=== PATIENT | male | born 1955 | race Caucasian/White ===

== ENCOUNTER 2017-05-31 17:26 | Inpatient (IN) ==
[2017-05-31 17:56] LABS: Immature Granulocytes % 0.5 % (0-4); Red Cell Distribution Width 18.8 % (11.5-14.5)
[2017-05-31 17:57] LABS: Basophils % 0.1 %; Lymphocytes # 0.5 K/mcL (0.6-4.6); Lymphocytes % 4.9 %; Mean Corpuscular HGB Conc 28.8 g/dL (31.6-35.5); Mean Corpuscular Hemoglobin 21.6 pg (28.0-33.3); Mean Corpuscular Volume 74.9 fL (83.0-100.0); Mean Platelet Volume 9.9 fL (9.4-12.4); Monocytes # 0.3 K/mcL (0.0-1.3); Monocytes % 3.3 %; Neutrophils # 8.6 K/mcL (1.6-8.9); Platelet Count 289 K/mcL (140-400); Red Blood Count 2.27 M/mcL (4.19-5.50); Segmented Neutrophils % 91.2 %
[2017-05-31 18:03] LABS: Hemoglobin 4.9 g/dL (12.9-16.9)
--- NOTE | 2017-05-31 18:08 | Emergency Department Note ---
Disposition Clinical Impression: Cancer Anemia Qualifiers: Anemia type: unspecified type Qualified Code(s): D64.9 - Anemia, unspecified GI bleed Qualifiers: GI bleed type/associated pathology: melena Qualified Code(s): K92.1 - Melena Disposition: Admitted As Inpatient Condition: Fair Referrals: NO,PCP [Primary Care Provider] - Forms: Work/School Release, ED Satisfaction Letter Time of Disposition: 18:49 General Adult HPI - General Chief complaint: ED General Medical Stated complaint: needs blood Time Seen by Provider: 05/31/17 17:32 Source: EMS Mode of arrival: EMS Limitations: no limitations Nursing Notes Reviewed: Yes Vital Signs Reviewed: Yes - History of Present Illness HPI Narrative: Patient is a 61-year-old male PMHx 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 The patient undergoes radiation treatments and he had routine lab testing performed today that showed a hgb 4.9. The patient states he has had lower energy but thought it was due to the heat. He denies any chest pain, sob, abdominal pain or blood in urine. He states he is not on any anticoagulants. Does admit to occasional dark tarry stools. 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: 0 - Related Data Home Medications Medication Instructions Recorded Confirmed Acetaminophen [Tylenol] 1,000 mg PO Q6HR PRN 05/01/17 05/31/17 Tamsulosin [Flomax] 0.4 mg PO DAILY 05/01/17 05/31/17 Finasteride [Proscar] 5 mg PO DAILY 05/15/17 05/31/17 Previous Rx's Medication Instructions Recorded Glycopyrrolate [Robinul] 1 mg PO TID #90 tablet 05/01/17 Capecitabine [Xeloda] 1,000 mg PO BID #120 tablet 05/15/17 Dexamethasone [Decadron] 4 mg PO Q8HR #60 tab 05/23/17 metFORMIN [Glucophage] 500 mg PO BID #60 tablet 05/23/17 Walker Wo Wheels [CHENTE WALKER] 1 each .ROUTE AD #1 each 05/31/17 Allergies Allergy/AdvReac Type Severity Reaction Status Date / Time Unable to Assess Allergy Unverified 05/01/17 14:01 All systems ED: reviewed and negative except as stated. Cardiovascular: Denies: chest pain, palpitations, dyspnea on exertion, orthopnea , syncope Respiratory: Denies: cough, dyspnea, wheezes Gastrointestinal: Reports: melena. Denies: abdominal pain, nausea, vomiting Past Medical History - Past Medical History Medical history: Reports: cancer, diabetes Psychiatric history: Reports: no psych history - Social History Smoking Status: Never smoker Smokeless Tobacco Status: No Alcohol use: Reports: none Drug use: Reports: none Physical Exam Patient is sitting comfortably in bed. He is talkative and in good spirits. - General Limitations: no limitations General appearance: alert, in no apparent distress - Head Head exam: atraumatic, normocephalic - Eye Eye exam: Present: normal appearance, PERRL, EOMI - ENT ENT exam: normal exam, normal oropharynx - Neck Neck exam: Present: normal inspection - Chest Chest inspection: Present: normal inspection, symmetric chest wall rise. Absent : tenderness - Respiratory Respiratory exam: Present: normal lung sounds bilaterally. Absent: respiratory distress, wheezes, stridor - Cardiovascular Cardiovascular exam: Present: regular rate, normal rhythm, normal heart sounds - Abdominal Exam Abdominal exam: Present: soft, Non-Tender, normal bowel sounds. Absent: tenderness, guarding, rebound, rigidity - Rectal Exam Rectal exam: Present: normal inspection, normal rectal tone, heme (+) stool (no gross blood per rectum). Absent: hemorrhoids, mass, tenderness - Neurological Exam Neurological exam: Present: alert, oriented X3 - Psychiatric Psychiatric exam: Present: normal affect, normal mood - Skin Skin exam: Present: warm, dry, pallor. Absent: diaphoresis Course Course Narrative: Here from the cancer center for low hemoglobin of 4.9. Suspected to be from a lower GI bleed. Denies any symptoms except for low energy and occasionally he has dark tarry stools. The plan is to initiate blood transfusion protocol and have the patient admitted for further evaluation. - Reevaluation(s) Reevaluation #1: I discussed the plan with the patient and he agrees. I ordered him a food tray. Time: 18:33 Reevaluation #2: Pt is tolerating food tray well. Time: 19:08 Vital Signs Temperature 97.3 F L 05/31/17 17:28 Pulse Rate 92 05/31/17 17:28 Respiratory Rate 18 05/31/17 17:28 Blood Pressure 128/76 05/31/17 17:28 O2 Sat by Pulse Oximetry 94 05/31/17 17:28 Temperature 97.3 F L 05/31/17 17:28 Pulse Rate 92 05/31/17 17:28 Respiratory Rate 18 05/31/17 17:28 Blood Pressure 128/76 05/31/17 17:28 O2 Sat by Pulse Oximetry 94 05/31/17 17:31 Oxygen Delivery Oxygen Delivery Room Air Medical Decision Making - MDM Narrative Medical decision making narrative: Pt presents from Cancer Clinic due to a hgb of 4.9 found on routine testing with complaints of tarry black stool and decreased energy. We initiated blood transfusion in the ED. The patient had a positive fecal hemoccult. We initiated blood transfusion protocol. His troponin is pending. I spoke with the hospitalist Dr. Hawk and she agrees to admit. - Medical Records Medical records reviewed: Yes I reviewed the patient's medical records. - Lab Data Lab results reviewed: Yes I reviewed the patient's lab results. Result diagrams: 05/31/17 17:48 05/31/17 17:48 Lab Results 05/31/17 05/31/17 05/31/17 Range/Units 17:48 17:48 17:48 WBC 9.4 (4.3-11.1) K/mcL RBC 2.27 L (4.19-5.50) M/mcL Hgb 4.9 L* (12.9-16.9) g/dL Hct 17.0 L (37.5-50.1) % MCV 74.9 L (83.0-100.0) fL MCH 21.6 L (28.0-33.3) pg MCHC 28.8 L (31.6-35.5) g/dL RDW 18.8 H (11.5-14.5) % Plt Count 289 (140-400) K/mcL MPV 9.9 (9.4-12.4) fL Immature Gran % 0.5 (0-4) % Seg Neutrophils % 91.2 % Lymphocytes % 4.9 % Monocytes % 3.3 % Eosinophils % 0.0 % Basophils % 0.1 % Neutrophils # 8.6 (1.6-8.9) K/mcL Lymphocytes # 0.5 L (0.6-4.6) K/mcL Monocytes # 0.3 (0.0-1.3) K/mcL Eosinophils # 0.0 (0.0-0.6) K/mcL Basophils # 0.0 (0.0-0.2) K/mcL PT 12.1 (9.4-12.1) Seconds INR 1.1 APTT 39.7 H (26.0-36.0) Seconds Sodium 136 (136-145) mEq/L Potassium 4.0 (3.5-4.5) mEq/L Chloride 103 (98-109) mEq/L Carbon Dioxide 25 (19-29) mEq/L BUN 35 H (8-26) mg/dL Creatinine 1.10 (0.72-1.25) mg/dL Est GFR ( Amer) > 60 (> 60) Est GFR (Non-Af Amer) > 60 (> 60) BUN/Creatinine Ratio 32 H (6-26) Glucose 155 H (70-99) mg/dL Calculated Osmolality 293 (280-300) Calcium 9.0 (8.6-10.8) mg/dL Total Bilirubin 0.5 (0.2-1.2) mg/dL AST 38 H (5-34) Units/L ALT 26 (0-55) Units/L Alkaline Phosphatase 205 H (38-126) Units/L Troponin I (0-0.03) ng/mL Serum Total Protein 6.5 (6.0-8.3) g/dL Albumin 3.1 L (3.5-5.0) g/dL Globulin 3.4 (2.4-3.5) g/dL Albumin/Globulin Ratio 0.9 L (1.1-2.2) Blood Type Antibody Screen Crossmatch 05/31/17 05/31/17 Range/Units 17:48 17:48 WBC (4.3-11.1) K/mcL RBC (4.19-5.50) M/mcL Hgb (12.9-16.9) g/dL Hct (37.5-50.1) % MCV (83.0-100.0) fL MCH (28.0-33.3) pg MCHC (31.6-35.5) g/dL RDW (11.5-14.5) % Plt Count (140-400) K/mcL MPV (9.4-12.4) fL Immature Gran % (0-4) % Seg Neutrophils % % Lymphocytes % % Monocytes % % Eosinophils % % Basophils % % Neutrophils # (1.6-8.9) K/mcL Lymphocytes # (0.6-4.6) K/mcL Monocytes # (0.0-1.3) K/mcL Eosinophils # (0.0-0.6) K/mcL Basophils # (0.0-0.2) K/mcL PT (9.4-12.1) Seconds INR APTT (26.0-36.0) Seconds Sodium (136-145) mEq/L Potassium (3.5-4.5) mEq/L Chloride (98-109) mEq/L Carbon Dioxide (19-29) mEq/L BUN (8-26) mg/dL Creatinine (0.72-1.25) mg/dL Est GFR ( Amer) (> 60) Est GFR (Non-Af Amer) (> 60) BUN/Creatinine Ratio (6-26) Glucose (70-99) mg/dL Calculated Osmolality (280-300) Calcium (8.6-10.8) mg/dL Total Bilirubin (0.2-1.2) mg/dL AST (5-34) Units/L ALT (0-55) Units/L Alkaline Phosphatase (38-126) Units/L Troponin I 0.01 (0-0.03) ng/mL Serum Total Protein (6.0-8.3) g/dL Albumin (3.5-5.0) g/dL Globulin (2.4-3.5) g/dL Albumin/Globulin Ratio (1.1-2.2) Blood Type A POSITIVE Antibody Screen NEGATIVE Crossmatch See Detail - Radiology Data Radiology results reviewed: Yes I reviewed the patient's radiology results. - EKG Data EKG #1 EKG attestation: Yes I reviewed and interpreted this EKG. EKG results narrative: I interpreted the EKG. Rate of 82. MN 157, QRS 114 QTc 343. Sinus rhythm. Normal [place]. T-wave flattening in V4-V6.No old EKG for comparison. EKG is suspicious for possible ischemia.
[2017-05-31 18:10] LABS: INR 1.1; Prothrombin Time 12.1 Seconds (9.4-12.1)
[2017-05-31 18:11] LABS: Alanine Aminotransferase 26 Units/L (0-55); Albumin 3.1 g/dL (3.5-5.0); Albumin/Globulin Ratio 0.9 (1.1-2.2); Alkaline Phosphatase 205 Units/L (38-126); Aspartate Amino Transferase 38 Units/L (5-34); BUN/Creatinine Ratio 32 (6-26); Bilirubin,Total 0.5 mg/dL (0.2-1.2); Blood Urea Nitrogen 35 mg/dL (8-26); Carbon Dioxide 25 mEq/L (19-29); Chloride 103 mEq/L (98-109); Globulin 3.4 g/dL (2.4-3.5); Glucose 155 mg/dL (70-99); Osmolality,Calculated 293 (280-300); Sodium 136 mEq/L (136-145); Total Protein 6.5 g/dL (6.0-8.3); eGFR For African Americans > 60 (> 60); eGFR For Non-African Americans > 60 (> 60)
[2017-05-31 18:13] LABS: Activated Partial Thrombo Time 39.7 Seconds (26.0-36.0)
--- NOTE | 2017-05-31 18:16 | Emergency Department Note ---
START Narrative - START START: I examined this patient and my medical decision-making was reviewed with the BARK SCALER/PA/Advanced Practice Nurse/Resident Physician. I agree with the documented findings, disposition and treatment plan as described except to the extent set forth below. ED attending: Patient's emergency medicine resident Dr. Garcia. Please see copy of this note for H&P evaluation and management and ED disposition. We both had independent [id number] time in contact with this patient. Briefly: 61 year old male sent over from the [facility] for low hemoglobin. Patient treated for esophageal cancer with metastasis. His been having some dark stools and is slightly fatigued upon exertion. Blood draw at the [facility] showed a hemoglobin about 4.8. Patient is guaiac-positive and pale in appearance. 2 units PRBCs ordered. Admission order placed. Awaiting hospitalist call back. Patient stable
[2017-05-31] MEDS ORDERED: 0.9 % Sodium Chloride 500 ML ONE (20:04)
--- NOTE | 2017-05-31 20:32 | Internal Med History&Physical ---
Date of Encounter: 05/31/17 Time of Encounter: 20:28 Assessment and Plan (1) Symptomatic anemia Current visit: Yes Status: Acute Likely has chronic bleeding secondary to esophageal cancer He has been typed and crossed; will get 3 units of pRBC today and recheck H/H @ midnight and again in the AM No indication for urgent colonoscopy or EGD at this time, but may re-evaluate if anemia does not improve with transfusion or develop ramon bleeding Closely monitor vital signs and any episodes of bleeding (2) Primary adenocarcinoma of esophagus with metastasis Current visit: Yes Status: Chronic Currently receiving brain radiotherapy at [facility] by Dr. Yang No urgent need for inpatient oncology consult at this time; may follow up as outpatient (3) Diabetes Current visit: No Status: Chronic Start on low dose SSI ACHS accuchecks Hold home metformin Qualifiers: Diabetes mellitus type: type 2 Diabetes mellitus complication status: without complication Diabetes mellitus penitentiary insulin use: without emt intermediate use Qualified Code(s): E11.9 - Type 2 diabetes mellitus without complications (4) DVT prophylaxis Current visit: Yes Status: Acute SCDs in setting of symptomatic anemia Internal Medicine - H&P: HPI Chief complaint: weakness, anemia Admitted From: Long-term Nursing Facility Plans for Post Hospital Care: Transfer Shelter Care History of present illness: Mr. Wakefield is a 61 year old male who presents from the cancer center for low hemoglobin. Patient was getting brain radiation earlier today and was sent over for hemoglobin of 4.9. He states that in the past 3 weeks he has been feeling lightheaded and progressive generalized weakness. He does have history of esophageal cancer with metastases to the brain, liver, lung and has been treated with surgery along with chemotherapy radiation. He states that his surgery was in 2012 and he has been having intermittent black tarry stools since then. He has not had a colonoscopy in over 10 years. He also has difficulty swallowing but takes his time and is able to eat a normal diet. Patient has also had a chronic cough with green sputum and states that he gets some pains during cough. He denies any shortness of breath, vomiting, fever, chills, diarrhea, constipation. He lives at a assisted living facility at [facility], and straight catheters himself on a daily basis. Past Med Surg Social Fam HX - Past Medical History Medical history: cancer, diabetes Psychiatric history: no psych history - Social History Smoking Status: Never smoker Smokeless Tobacco Status: No Alcohol use: none Drug use: none Internal Medicine - H&P: Meds Acetaminophen [Tylenol] 1,000 mg PO Q6HR PRN 05/01/17 [History] Glycopyrrolate [Robinul] 1 mg PO TID #90 tablet 05/01/17 [Rx] Tamsulosin [Flomax] 0.4 mg PO DAILY 05/01/17 [History] Capecitabine [Xeloda] 1,000 mg PO BID #120 tablet 05/15/17 [Rx] Finasteride [Proscar] 5 mg PO DAILY 05/15/17 [History] Dexamethasone [Decadron] 4 mg PO Q8HR #60 tab 05/23/17 [Rx] metFORMIN [Glucophage] 500 mg PO BID #60 tablet 05/23/17 [Rx] Walker Wo Wheels [CHENTE WALKER] 1 each .ROUTE AD #1 each 05/31/17 [Rx] Allergies Unable to Assess Allergy (Unverified 05/01/17 14:01) awaiting digital forensic examiner All Systems PM: A 10-system review of systems was performed and is negative for pertinent findings except as documented above in the HPI. - Constitutional Constitutional: weakness, no chills, no fever(s), no falls, no night sweats - EENT Eyes: no change in vision, no discharge, no pain, no photophobia Ears: no ear discharge, no ear pain, no tinnitus Nose, mouth and throat: dysphagia, no nasal discharge, no neck pain, no sore throat - Cardiovascular Cardiovascular ROS IM: lightheadedness, no chest pain, no diaphoresis, no dyspnea, no palpitations, no syncope - Respiratory Respiratory: excessive phlegm production, pain with cough, no cough, no dyspnea , no wheezing - Gastrointestinal Gastrointestinal: melena, nausea, no abdominal pain, no diarrhea, no hematemesis , no hematochezia, no vomiting - Genitourinary Genitourinary ROS male: difficulty urinating - Musculoskeletal Musculoskeletal ROS IM: no numbness, no tingling - Integumentary Integumentary IM: no rash, no unusual bruising - Neurological Neurological ROS: no confusion, no convulsions, no focal weakness, no numbness, no tingling, no tremor(s) - Constitutional Vitals: Temp Pulse Resp BP Pulse Ox 97.3 F L 92 18 131/72 94 05/31/17 17:28 05/31/17 17:28 05/31/17 19:20 05/31/17 19:20 05/31/17 17:31 General appearance: Present: cooperative, A&O X 3, pleasant, no acute distress, answers questions appropriately - Head Head exam: Present: atraumatic, normocephalic - Eye Eye exam: Present: PERRL, conjuntiva pink, sclera anicteric - Neck Neck exam general surgery: Present: supple, trachea midline. Absent: lymphadenopathy - Respiratory Respiratory exam: Present: CTAB. Absent: accessory muscle use, rales, rhonchi, wheezes - Cardiovascular Cardiovascular exam: Present: RRR, +S1, +S2. Absent: diastolic murmur, gallop, rubs, systolic murmur - GI/Abdominal GI/Abdominal exam: Present: normal bowel sounds, soft, no peritoneal signs. Absent: distended, tenderness - Extremities Exam Extremities exam: Present: warm, radial pulses palpable and symetrical. Absent : calf tenderness, cyanotic, pedal edema - Neurological Exam Neurological exam: Present: alert, oriented X3, no focal deficits. Absent: facial droop, speech deficit - Skin Skin exam: Present: dry, intact Internal Med - H&P Results - Labs CBC & Chem 7: 05/31/17 17:48 05/31/17 17:48
[2017-05-31] MEDS ORDERED: *HR* Dextrose 50 % in Water (Syg) 50 ML SYRINGE IVP PRN (20:45)
[2017-05-31] MEDS ORDERED: Dextrose Gel 15 GM PO PRN ×2 (20:45)
[2017-05-31] MEDS ORDERED: Ondansetron ODT 4 MG TAB.RAPDIS SL PRN (20:45)
[2017-05-31] MEDS ORDERED: D5% in Water 1,000 ML IVC PRN (20:45)
[2017-05-31] MEDS ORDERED: Naloxone 0.4 MG/ML INJ IVP PRN (20:45)
[2017-05-31] MEDS ORDERED: *HR* HYDROcodone/Acet 5/325 mg TABLET PO PRN (20:45)
[2017-05-31] MEDS: (Capecitabine [Xeloda] 1,000 MG) PO SCH (22:06)
[2017-05-31] MEDS: Insulin LISPRO 300 UNITS/3 ML VIAL SQ SCH (22:16)
[2017-06-01] MEDS ORDERED: 0.9 % Sodium Chloride 250 ML ONE (02:50)
[2017-06-01] MEDS: Acetaminophen 325 MG TABLET PO PRN (04:44)
[2017-06-01 07:26] LABS: BUN/Creatinine Ratio 34 (6-26); Blood Urea Nitrogen 31 mg/dL (8-26); Calcium 8.9 mg/dL (8.6-10.8); Carbon Dioxide 28 mEq/L (19-29); Chloride 102 mEq/L (98-109); Glucose 126 mg/dL (70-99); Osmolality,Calculated 286 (280-300); Potassium 4.3 mEq/L (3.5-4.5); Sodium 134 mEq/L (136-145); eGFR For African Americans > 60 (> 60); eGFR For Non-African Americans > 60 (> 60)
[2017-06-01] MEDS: (Capecitabine [Xeloda] 1,000 MG) PO SCH (07:44)
[2017-06-01] MEDS: Finasteride 5 MG TABLET PO SCH ×2 (07:44→11:43)
[2017-06-01 08:29] LABS: Hematocrit 23.1 % (37.5-50.1); Immature Granulocytes % 0.4 % (0-4); Lymphocytes # 0.7 K/mcL (0.6-4.6); Lymphocytes % 9.4 %; Mean Corpuscular HGB Conc 30.7 g/dL (31.6-35.5); Mean Corpuscular Hemoglobin 24.1 pg (28.0-33.3); Mean Corpuscular Volume 78.6 fL (83.0-100.0); Mean Platelet Volume 9.5 fL (9.4-12.4); Monocytes # 0.4 K/mcL (0.0-1.3); Monocytes % 5.8 %; Neutrophils # 5.9 K/mcL (1.6-8.9); Platelet Count 221 K/mcL (140-400); Red Blood Count 2.94 M/mcL (4.19-5.50); Red Cell Distribution Width 18.1 % (11.5-14.5); Segmented Neutrophils % 84.4 %
[2017-06-01 08:34] LABS: Hemoglobin 7.1 g/dL (12.9-16.9)
[2017-06-01] MEDS: Insulin LISPRO 300 UNITS/3 ML VIAL SQ SCH ×4 (09:37→21:21)
[2017-06-01] MEDS: Pantoprazole 40 MG VIAL IVP SCH (09:43)
--- NOTE | 2017-06-01 16:07 | Internal Med Progress Note ---
Date of Encounter: 06/01/17 Time of Encounter: 16:03 - Assessment and plan (1) Symptomatic anemia Current Visit: Yes Status: Acute Assessment and plan: His acute anemia mostly due to his cancer / chronic disease also possible malnutrition too s/p PRBC x 3 units..Hb improved to 7.1 Cont close monitoring check stool hemoccult will check for Iron studies Rivet Driver consulted for PCM Patient does need to stay in the hospital more than 2 midnights due to his complex medical problems. So we will change him to full admission today. I did review my colleague's H & P including HPI, PMH, PSH, FH, SH, and ROS no changes noticed. FH - reviewed his maternal grandfather had SD. (2) Metastasis from esophageal cancer Current Visit: No Status: Chronic Assessment and plan: cont chemo radiation therapy as per Heme Onc (3) Brain metastasis Current Visit: No Status: Acute Assessment and plan: Spoke to radiation oncologist regarding his further therapies.. He recommend to send the pt to ECF for short term PT / OT and f/u at [facility] for further therapies (4) Diabetes Current Visit: No Status: Chronic Assessment and plan: currently on ISS once pt started eating better will resume PO meds too Qualifiers: Diabetes mellitus type: type 2 Diabetes mellitus complication status: without complication Diabetes mellitus rn long term care insulin use: without rn long term care use Qualified Code(s): E11.9 - Type 2 diabetes mellitus without complications (5) Primary adenocarcinoma of esophagus with metastasis Current Visit: Yes Status: Chronic (6) Fatigue Current Visit: No Status: Acute Qualifiers: Qualified Code(s): R53.83 - Other fatigue (7) Protein-calorie malnutrition, moderate Current Visit: Yes Status: Acute Assessment and plan: [email or web address] application developer consulted will check prealbumin levels (8) Physical deconditioning Current Visit: Yes Status: Acute Assessment and plan: PT / OT eval ordered may need to go to ECF for short term rehab - Subjective Interval history: Mr. Wakefield is a 61 year old male who presents from the [facility] for low hemoglobin. Patient was getting brain radiation earlier today and was sent over for hemoglobin of 4.9. He states that in the past 3 weeks he has been feeling lightheaded and progressive generalized weakness. He does have history of esophageal cancer with metastases to the brain, liver, lung and has been treated with surgery along with chemotherapy radiation. Pt is actively going for brain radiotherapy for his brain metastatic lesions. He started having dizziness / light headedness and shortness of breath. His blood work at cancer center showed severe anemia with Hb at 4.9. Pt was admitted here and recieved 3 U of PRBC. today he is more alert, awake and O x3. Denied any CP / SOB. Stated he is feeling better today. His throat pain / swallowing also better, wants to eat some food. - Constitutional Vitals: Temp Pulse Resp BP Pulse Ox 98.4 F 70 18 111/66 97 06/01/17 13:55 06/01/17 13:55 06/01/17 13:55 06/01/17 13:55 06/01/17 13:55 General appearance: Present: cooperative, A&O X 3, no acute distress, answers questions appropriately - Respiratory Respiratory exam: Present: decreased breath sounds, wheezes. Absent: rales, rhonchi, stridor - Cardiovascular Cardiovascular exam: Present: RRR, +S1, +S2. Absent: diastolic murmur, gallop, rubs, systolic murmur - GI/Abdominal GI/Abdominal exam: Present: normal bowel sounds, soft. Absent: distended, firm , mass, tenderness - Extremities Exam Extremities exam: Present: warm, radial pulses palpable and symetrical. Absent : calf tenderness, cyanotic, pedal edema - Psychiatric Psychiatric exam: Present: normal affect, normal mood Internal Medicine: Result - Labs CBC & Chem 7: 06/01/17 07:00 06/01/17 07:00 Labs: Short CBC 06/01/17 Range/Units 07:00 WBC 6.9 (4.3-11.1) K/mcL Hgb 7.1 L D (12.9-16.9) g/dL Hct 23.1 L (37.5-50.1) % Plt Count 221 (140-400) K/mcL Neutrophils # 5.9 (1.6-8.9) K/mcL BMP 06/01/17 07:00 Sodium 134 L Potassium 4.3 Chloride 102 Carbon Dioxide 28 BUN 31 H Creatinine 0.92 Glucose 126 H Calcium 8.9 - ABG Interpretation ABG results: PT/INR, D-dimer PT 12.1 Seconds (9.4-12.1) 07/13/17 17:48 - VTE Documentation of Mechanical Device: Intermittent pneumatic compression device Consult Discharge Plan - Plan Referrals: NO,PCP [Primary Care Provider] -
--- NOTE | 2017-06-01 17:23 | Electrocardiograph Report ---
[place] [id number] Test Date: 2017-05-31 Pat Name: Chaparro Wakefield Department: 104 Room: 3A33 Gender: M [facility] Director: : 1955 Requested By: Sukhjinder Garcia Order Number: [id number] Reading MD: Roney Cabrera DO Measurements Intervals [place] Rate: 82 P: -64 SD: 157 QRS: 34 QRSD: 114 T: -86 QT: 304 QTc: 343 Interpretive Statements SINUS RHYTHM INTRAVENTRICULAR CONDUCTION DELAY NONSPECIFIC T-WAVE ABNORMALITY Electronically Signed On 06-01-2017 17:21:25 EDT by Roney Cabrera DO
[2017-06-02 06:21] LABS: Basophils % 0.2 %; Hematocrit 24.5 % (37.5-50.1); Hemoglobin 7.5 g/dL (12.9-16.9); Immature Granulocytes % 0.3 % (0-4); Lymphocytes % 14.8 %; Mean Corpuscular HGB Conc 30.6 g/dL (31.6-35.5); Mean Corpuscular Volume 78.3 fL (83.0-100.0); Mean Platelet Volume 9.3 fL (9.4-12.4); Monocytes % 9.6 %; Platelet Count 214 K/mcL (140-400); Red Blood Count 3.13 M/mcL (4.19-5.50); Red Cell Distribution Width 18.7 % (11.5-14.5); Segmented Neutrophils % 75.1 %
[2017-06-02 06:22] LABS: Lymphocytes # 0.9 K/mcL (0.6-4.6); Monocytes # 0.6 K/mcL (0.0-1.3); Neutrophils # 4.3 K/mcL (1.6-8.9)
[2017-06-02 06:36] LABS: % Iron Saturation 3 % (20-55); Iron 12 mcg/dL (65-175); Transferrin 274 mg/dL (174-364)
[2017-06-02 06:57] LABS: Ferritin 26 ng/ml (22-275)
[2017-06-02] MEDS: Finasteride 5 MG TABLET PO SCH (07:38)
[2017-06-02] MEDS: Pantoprazole 40 MG VIAL IVP SCH (07:39)
[2017-06-02] MEDS: Insulin LISPRO 300 UNITS/3 ML VIAL SQ SCH ×4 (07:55→23:02)
--- NOTE | 2017-06-02 09:03 | Internal Med Progress Note ---
Date of Encounter: 06/02/17 Time of Encounter: 09:01 - Assessment and plan (1) Symptomatic anemia Current Visit: Yes Status: Acute Assessment and plan: His acute anemia mostly due to his cancer / chronic disease also possible malnutrition too s/p PRBC x 3 units..Hb stable@ 7.5 Cont close monitoring check stool hemoccult reviewed Iron studies showing severe iron def Resin Shaver consulted for PCM (2) Iron deficiency anemia due to dietary causes Current Visit: Yes Status: Acute Assessment and plan: Started on PO Iron supplements (3) Metastasis from esophageal cancer Current Visit: No Status: Chronic Assessment and plan: cont chemo radiation therapy as per Heme Onc (4) Brain metastasis Current Visit: No Status: Acute Assessment and plan: cont PO Steroids.. Spoke to radiation oncologist regarding his further therapies.. He recommend to send the pt [facility] for short term PT / OT and f/u at [facility] for further therapies (5) Diabetes Current Visit: No Status: Chronic Assessment and plan: currently on ISS resumed PO meds too Qualifiers: Diabetes mellitus type: type 2 Diabetes mellitus complication status: without complication Diabetes mellitus half-way insulin use: without half-way use Qualified Code(s): E11.9 - Type 2 diabetes mellitus without complications (6) Primary adenocarcinoma of esophagus with metastasis Current Visit: Yes Status: Chronic (7) Fatigue Current Visit: No Status: Acute Qualifiers: Qualified Code(s): R53.83 - Other fatigue (8) Protein-calorie malnutrition, moderate Current Visit: Yes Status: Acute Assessment and plan: advertising agent consulted will f/u on prealbumin levels (9) Physical deconditioning Current Visit: Yes Status: Acute Assessment and plan: PT / OT eval may need to go to ECF for short term rehab (10) Urinary retention Current Visit: Yes Status: Chronic Assessment and plan: chronic problem cont straight cath as PRN - Subjective Interval history: Mr. Wakefield is a 61 year old male who presents from the [facility] for low hemoglobin. Patient was getting brain radiation earlier today and was sent over for hemoglobin of 4.9. He states that in the past 3 weeks he has been feeling lightheaded and progressive generalized weakness. He does have history of esophageal cancer with metastases to the brain, liver, lung and has been treated with surgery along with chemotherapy radiation. Pt is actively going for brain radiotherapy for his brain metastatic lesions. He started having dizziness / light headedness and shortness of breath. His blood work at cancer center showed severe anemia with Hb at 4.9. Pt was admitted here and recieved 3 U of PRBC. today he is more alert, awake and O x3. Denied any CP / SOB. Stated he is feeling better today. His throat pain / swallowing also better..tolerating soft diet well. - Constitutional Vitals: Temp Pulse Resp BP Pulse Ox 97.9 F 68 18 121/80 97 06/02/17 08:12 06/02/17 07:57 06/02/17 07:57 06/02/17 07:57 06/02/17 07:57 General appearance: Present: cooperative, A&O X 3, no acute distress, answers questions appropriately - Respiratory Respiratory exam: Present: decreased breath sounds, wheezes. Absent: rales, respiratory distress, rhonchi - Cardiovascular Cardiovascular exam: Present: RRR, +S1, +S2. Absent: diastolic murmur, gallop, rubs, systolic murmur - GI/Abdominal GI/Abdominal exam: Present: soft. Absent: distended, mass, rebound, rigid, tenderness - Extremities Exam Extremities exam: Absent: calf tenderness, pedal edema, tenderness - Psychiatric Psychiatric exam: Present: normal affect, normal mood Internal Medicine: Result - Labs CBC & Chem 7: 06/02/17 05:58 06/01/17 07:00 Labs: Short CBC 06/02/17 Range/Units 05:58 WBC 5.7 (4.3-11.1) K/mcL Hgb 7.5 L (12.9-16.9) g/dL Hct 24.5 L (37.5-50.1) % Plt Count 214 (140-400) K/mcL Neutrophils # 4.3 (1.6-8.9) K/mcL - ABG Interpretation ABG results: PT/INR, D-dimer PT 12.1 Seconds (9.4-12.1) 05/31/17 17:48 - VTE Documentation of Mechanical Device: Intermittent pneumatic compression device Consult Discharge Plan - Plan Referrals: NO,PCP [Primary Care Provider] -
[2017-06-02] MEDS: *HR* Metformin 500 MG TABLET PO SCH ×2 (09:15→16:18)
[2017-06-03 06:48] LABS: Eosinophils % 0.1 %; Hematocrit 23.7 % (37.5-50.1); Hemoglobin 7.2 g/dL (12.9-16.9); Immature Granulocytes % 0.5 % (0-4); Lymphocytes # 1.1 K/mcL (0.6-4.6); Lymphocytes % 14.1 %; Mean Corpuscular HGB Conc 30.4 g/dL (31.6-35.5); Mean Corpuscular Hemoglobin 24.1 pg (28.0-33.3); Mean Corpuscular Volume 79.3 fL (83.0-100.0); Mean Platelet Volume 9.7 fL (9.4-12.4); Monocytes # 0.7 K/mcL (0.0-1.3); Monocytes % 9.1 %; Neutrophils # 5.8 K/mcL (1.6-8.9); Platelet Count 199 K/mcL (140-400); Red Blood Count 2.99 M/mcL (4.19-5.50); Red Cell Distribution Width 19.3 % (11.5-14.5); Segmented Neutrophils % 76.2 %
[2017-06-03] MEDS: Insulin LISPRO 300 UNITS/3 ML VIAL SQ SCH ×4 (07:30→20:58)
[2017-06-03] MEDS: Pantoprazole 40 MG VIAL IVP SCH (07:44)
[2017-06-03] MEDS: *HR* Metformin 500 MG TABLET PO SCH ×2 (07:44→16:02)
[2017-06-03] MEDS: Finasteride 5 MG TABLET PO SCH (07:44)
--- NOTE | 2017-06-03 09:52 | Internal Med Progress Note ---
Date of Encounter: 06/03/17 Time of Encounter: 09:48 - Assessment and plan (1) Symptomatic anemia Current Visit: Yes Status: Acute Assessment and plan: His acute anemia mostly due to his cancer / chronic disease also possible malnutrition too s/p PRBC x 3 units..Hb stable@ 7.5 Cont close monitoringt reviewed Iron studies showing severe iron def started on FeSo4 Production Technologist consulted for PCM (2) Iron deficiency anemia due to dietary causes Current Visit: Yes Status: Acute Assessment and plan: Cont on PO Iron supplements (3) Metastasis from esophageal cancer Current Visit: No Status: Chronic Assessment and plan: cont chemo radiation therapy as per Heme Onc (4) Brain metastasis Current Visit: No Status: Acute Assessment and plan: cont PO Steroids.. Spoke to radiation oncologist regarding his further therapies.. He recommend to send the pt to [facility] for short term PT / OT and f/u at [facility] for further therapies (5) Diabetes Current Visit: No Status: Chronic Assessment and plan: currently on ISS Cont home regimen too Qualifiers: Diabetes mellitus type: type 2 Diabetes mellitus complication status: without complication Diabetes mellitus prison insulin use: without prison use Qualified Code(s): E11.9 - Type 2 diabetes mellitus without complications (6) Primary adenocarcinoma of esophagus with metastasis Current Visit: Yes Status: Chronic (7) Fatigue Current Visit: No Status: Acute Qualifiers: Qualified Code(s): R53.83 - Other fatigue (8) Protein-calorie malnutrition, moderate Current Visit: Yes Status: Acute Assessment and plan: human factors ergonomist consulted will f/u on prealbumin levels (9) Physical deconditioning Current Visit: Yes Status: Acute Assessment and plan: PT / OT eval may need to go to ECF for short term rehab (10) GERD (gastroesophageal reflux disease) Current Visit: Yes Status: Acute Assessment and plan: Started on Pepcid 20mg BID also placed him on Tums Qualifiers: Qualified Code(s): K21.0 - Gastro-esophageal reflux disease with esophagitis (11) Urinary retention Current Visit: Yes Status: Chronic Assessment and plan: chronic problem cont straight cath as PRN - Subjective Interval history: Mr. Wakefield is a 61 year old male who presents from the [facility] [place] for low hemoglobin. Patient was getting brain radiation earlier today and was sent over for hemoglobin of 4.9. He states that in the past 3 weeks he has been feeling lightheaded and progressive generalized weakness. He does have history of esophageal cancer with metastases to the brain, liver, lung and has been treated with surgery along with chemotherapy radiation. Pt is actively going for brain radiotherapy for his brain metastatic lesions. He started having dizziness / light headedness and shortness of breath. His blood work at cancer center showed severe anemia with Hb at 4.9. Pt was admitted here and received 3 U of PRBC. Today he is more alert, awake and O x3. Denied any CP / SOB. His throat pain / swallowing also better..tolerating soft diet well. However he did c/o some heart burn and epigastric discomfort today - Constitutional Vitals: Temp Pulse Resp BP Pulse Ox 97.7 F 71 18 99/64 97 06/03/17 08:16 06/03/17 08:16 06/03/17 08:16 06/03/17 08:16 06/03/17 08:16 General appearance: Present: cooperative, A&O X 3, no acute distress, answers questions appropriately - Respiratory Respiratory exam: Present: decreased breath sounds. Absent: rales, respiratory distress, rhonchi, wheezes - Cardiovascular Cardiovascular exam: Present: RRR, +S1, +S2. Absent: diastolic murmur, systolic murmur - GI/Abdominal GI/Abdominal exam: Present: normal bowel sounds, soft. Absent: distended, tenderness - Extremities Exam Extremities exam: Absent: calf tenderness, pedal edema, tenderness - Neurological Exam Neurological exam: Present: alert, oriented X3 - Psychiatric Psychiatric exam: Present: normal affect, normal mood Internal Medicine: Result - Labs CBC & Chem 7: 06/03/17 06:20 06/01/17 07:00 Labs: Short CBC 06/03/17 Range/Units 06:20 WBC 7.6 (4.3-11.1) K/mcL Hgb 7.2 L (12.9-16.9) g/dL Hct 23.7 L (37.5-50.1) % Plt Count 199 (140-400) K/mcL Neutrophils # 5.8 (1.6-8.9) K/mcL - ABG Interpretation ABG results: PT/INR, D-dimer PT 12.1 Seconds (9.4-12.1) 05/31/17 17:48 - VTE Documentation of Mechanical Device: Intermittent pneumatic compression device Consult Discharge Plan - Plan Referrals: NO,PCP [Primary Care Provider] -
[2017-06-03] MEDS: Famotidine 20 MG TABLET PO SCH ×2 (11:31→21:07)
[2017-06-03] MEDS: Acetaminophen 325 MG TABLET PO PRN (11:38)
[2017-06-04 03:19] LABS: Immature Granulocytes % 0.4 % (0-4); Lymphocytes # 0.9 K/mcL (0.6-4.6); Lymphocytes % 12.9 %; Mean Corpuscular HGB Conc 30.4 g/dL (31.6-35.5); Mean Corpuscular Volume 78.8 fL (83.0-100.0); Mean Platelet Volume 9.7 fL (9.4-12.4); Monocytes # 0.6 K/mcL (0.0-1.3); Monocytes % 9.2 %; Neutrophils # 5.4 K/mcL (1.6-8.9); Platelet Count 203 K/mcL (140-400); Red Blood Count 2.92 M/mcL (4.19-5.50); Red Cell Distribution Width 19.2 % (11.5-14.5); Segmented Neutrophils % 77.5 %
[2017-06-04] MEDS: Insulin LISPRO 300 UNITS/3 ML VIAL SQ SCH ×2 (08:31→12:41)
[2017-06-04] MEDS: *HR* Metformin 500 MG TABLET PO SCH (08:33)
[2017-06-04] MEDS: Finasteride 5 MG TABLET PO SCH (08:33)
[2017-06-04] MEDS: Famotidine 20 MG TABLET PO SCH (08:33)
[2017-06-04] MEDS: Acetaminophen 325 MG TABLET PO PRN (10:31)
--- NOTE | 2017-06-04 11:09 | Internal Med Progress Note ---
Date of Encounter: 06/04/17 Time of Encounter: 11:07 - Assessment and plan (1) Symptomatic anemia Current Visit: Yes Status: Acute Assessment and plan: His acute anemia mostly due to his cancer / chronic disease also possible malnutrition too s/p PRBC x 3 units..Hb stable@ 7.0 Cont close monitoring Iron studies showed severe iron def cont on FeSo4 Machine Maintenance Technician consulted for PCM (2) Iron deficiency anemia due to dietary causes Current Visit: Yes Status: Acute Assessment and plan: Cont on PO Iron supplements (3) Metastasis from esophageal cancer Current Visit: No Status: Chronic Assessment and plan: cont chemo radiation therapy as per Heme Onc (4) Brain metastasis Current Visit: No Status: Acute Assessment and plan: cont PO Steroids.. Spoke to radiation oncologist regarding his further therapies.. 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 Qualified Code(s): E11.9 - Type 2 diabetes mellitus without complications (6) Primary adenocarcinoma of esophagus with metastasis Current Visit: Yes Status: Chronic (7) Fatigue Current Visit: No Status: Acute Qualifiers: Qualified Code(s): R53.83 - Other fatigue (8) Protein-calorie malnutrition, moderate Current Visit: Yes Status: Acute Assessment and plan: saxophone player consulted (9) Physical deconditioning Current Visit: Yes Status: Acute Assessment and plan: PT / OT eval may need to go to ECF for short term rehab SW / CM working on it waiting for insurance prior auth (10) GERD (gastroesophageal reflux disease) Current Visit: Yes Status: Acute Assessment and plan: Started on Pepcid 20mg BID also placed him on Tums Qualifiers: Qualified Code(s): K21.0 - Gastro-esophageal reflux disease with esophagitis (11) Urinary retention Current Visit: Yes Status: Chronic Assessment and plan: chronic problem cont straight cath as PRN - Subjective Interval history: Mr. Wakefield is a 61 year old male who presents from the cancer center for low hemoglobin. Patient was getting brain radiation earlier today and was sent over for hemoglobin of 4.9. He states that in the past 3 weeks he has been feeling lightheaded and progressive generalized weakness. He does have history of esophageal cancer with metastases to the brain, liver, lung and has been treated with surgery along with chemotherapy radiation. Pt is actively going for brain radiotherapy for his brain metastatic lesions. He started having dizziness / light headedness and shortness of breath. His blood work at [facility] center showed severe anemia with Hb at 4.9. Pt was admitted here and received 3 U of PRBC. Today he is more alert, awake and O x3. Denied any CP / SOB. His throat pain / swallowing also better..tolerating soft diet well. His heart burn and epigastric discomfort also better today - Constitutional Vitals: Temp Pulse Resp BP Pulse Ox 97.9 F 55 16 112/70 96 06/04/17 08:06 06/04/17 08:06 06/04/17 08:06 06/04/17 08:06 06/04/17 08:06 General appearance: Present: cooperative, A&O X 3, no acute distress, answers questions appropriately - Respiratory Respiratory exam: Present: decreased breath sounds, wheezes. Absent: rales, respiratory distress, rhonchi, tachypnea - Cardiovascular Cardiovascular exam: Present: RRR, +S1, +S2. Absent: diastolic murmur, gallop, rubs, systolic murmur - GI/Abdominal GI/Abdominal exam: Present: normal bowel sounds, soft. Absent: guarding, rebound, tenderness - Extremities Exam Extremities exam: Absent: calf tenderness, pedal edema, tenderness - Neurological Exam Neurological exam: Present: alert, oriented X3 - Psychiatric Psychiatric exam: Present: normal affect, normal mood Internal Medicine: Result - Labs CBC & Chem 7: 06/04/17 03:15 06/01/17 07:00 Labs: Short CBC 06/04/17 Range/Units 03:15 WBC 7.0 (4.3-11.1) K/mcL Hgb 7.0 L (12.9-16.9) g/dL Hct 23.0 L (37.5-50.1) % Plt Count 203 (140-400) K/mcL Neutrophils # 5.4 (1.6-8.9) K/mcL - ABG Interpretation ABG results: PT/INR, D-dimer PT 12.1 Seconds (9.4-12.1) 05/31/17 17:48 - VTE Documentation of Mechanical Device: Intermittent pneumatic compression device Consult Discharge Plan - Plan Referrals: NO,PCP [Primary Care Provider] -
[2017-06-04 11:39] VITALS: BP 110/70
--- NOTE | 2017-06-04 14:05 | Discharge Summary ---
Date of Encounter: 06/04/17 Time of Encounter: 14:01 - Discharge Diagnosis (1) Symptomatic anemia Priority: Primary Status: Acute (2) Iron deficiency anemia due to dietary causes Priority: Primary Status: Acute (3) Metastasis from esophageal cancer Priority: Secondary Status: Chronic (4) Brain metastasis Priority: Secondary Status: Acute (5) Diabetes Priority: Secondary Status: Chronic Qualifiers: Diabetes mellitus type: type 2 Diabetes mellitus complication status: without complication Diabetes mellitus terminal computer operator insulin use: without [facility] use Qualified Code(s): E11.9 - Type 2 diabetes mellitus without complications (6) Primary adenocarcinoma of esophagus with metastasis Priority: Secondary Status: Chronic (7) Fatigue Priority: Secondary Status: Acute Qualifiers: Qualified Code(s): R53.83 - Other fatigue (8) Protein-calorie malnutrition, moderate Priority: Secondary Status: Acute (9) Physical deconditioning Priority: Secondary Status: Acute (10) GERD (gastroesophageal reflux disease) Priority: Secondary Status: Acute Qualifiers: Qualified Code(s): K21.0 - Gastro-esophageal reflux disease with esophagitis (11) Urinary retention Priority: Secondary Status: Chronic - Discharge Medications Prescriptions: HYDROcodone/Acet 5/325 mg [[place] 5-325 mg] 1 tab PO Q4HR PRN #20 tab PRN Reason: Moderate Pain (4-6) Home Medications: Glycopyrrolate [Robinul] 1 mg PO TID #90 tablet 05/01/17 [Rx] Tamsulosin [Flomax] 0.4 mg PO DAILY 05/01/17 [History] Capecitabine [Xeloda] 1,000 mg PO BID #120 tablet 05/15/17 [Rx] Finasteride [Proscar] 5 mg PO DAILY 05/15/17 [History] Dexamethasone [Decadron] 4 mg PO Q8HR #60 tab 05/23/17 [Rx] metFORMIN [Glucophage] 500 mg PO BID #60 tablet 05/23/17 [Rx] Walker Wo Wheels [CHENTE WALKER] 1 each .ROUTE AD #1 each 05/31/17 [Rx] Acetaminophen [Tylenol] 500 mg PO Q6HR PRN #0 06/04/17 [Rx] Docusate [Colace] 100 mg PO BID PRN 06/04/17 [Rx] Famotidine [Pepcid] 20 mg PO BID tab 06/04/17 [Rx] Ferrous Sulfate 325 mg PO BIDWM tab 06/04/17 [Rx] HYDROcodone/Acet 5/325 mg [[place] 5-325 mg] 1 tab PO Q4HR PRN #20 tab 06/04/17 [ Rx] Allergies/Adverse Reactions: Allergies Penicillins [PCN] Adverse Reaction (Verified 05/31/17 20:51) Hives Date of admission: 06/01/17 15:59 Primary care physician: PCP NO - Patient Status Disposition: Transfer SNF Condition: Fair Overall status at discharge: patient is back to baseline - Discharge Instructions Follow Up With: NO,PCP [Primary Care Provider] - Bryan Yang MD [Partnered Physician] - (f/u in 2 days) - Diet and Activity Activity: as per physical therapy Diet: advance to your usual diet Hospital course: Mr. Wakefield is a 61 year old male who presents from the [facility] for low hemoglobin. Patient was getting brain radiation earlier today and was sent over for hemoglobin of 4.9. He states that in the past 3 weeks he has been feeling lightheaded and progressive generalized weakness. He does have history of esophageal cancer with metastases to the brain, liver, lung and has been treated with surgery along with chemotherapy radiation. Pt is actively going for brain radiotherapy for his brain metastatic lesions. He started having dizziness / light headedness and shortness of breath. His blood work at [facility] showed severe anemia with Hb at 4.9. Pt was admitted here and received 3 U of PRBC. Pthb improved to 7.5 and stayed stable around 7.5. His symptoms also improved. he happened to severe iron def anemia due to malnutrition and poor dietary intake as well as his malignancy. He was evaluated by PT / OT for his deconditioning who recommend ECF placement for short term rehab. So will d/c him to ECF today in stable condition. Regaridng his brain mets [place] continued PO steroids, also spoke to radiation oncologist Dr. Yang who is going to resume his radiation therapy as an out pt from ECF. - Time Spent with Patient Total time spent providing and/or coordinating discharge services: - Constitutional Vitals: Temp Pulse Resp BP Pulse Ox 98.0 F 85 14 110/70 96 06/04/17 11:38 06/04/17 11:38 06/04/17 11:38 06/04/17 11:38 06/04/17 11:38 General appearance: Present: cooperative, A&O X 3, no acute distress, answers questions appropriately - Respiratory Respiratory exam: Present: decreased breath sounds, wheezes. Absent: rales, respiratory distress, rhonchi - Cardiovascular Cardiovascular exam: Present: RRR, +S1, +S2. Absent: diastolic murmur, gallop, rubs, systolic murmur - GI/Abdominal GI/Abdominal exam: Present: normal bowel sounds, soft. Absent: distended, guarding, tenderness - Extremities Exam Extremities exam: Absent: calf tenderness, pedal edema, tenderness - Neurological Exam Neurological exam: Present: alert, oriented X3 - Psychiatric Psychiatric exam: Present: normal affect, normal mood - VTE Documentation of Mechanical Device: Intermittent pneumatic compression device
--- NOTE | 2017-06-04 14:08 | Physician Discharge Referral ---
ExtendedCare Referral Info Transfer To: ECF Provider in Charge after Transfer: PCP Institutional Level of Care: Skilled - Diagnosis (1) Symptomatic anemia Status: Acute (2) Iron deficiency anemia due to dietary causes Status: Acute (3) Metastasis from esophageal cancer Status: Chronic (4) Brain metastasis Status: Acute (5) Diabetes Status: Chronic (6) Primary adenocarcinoma of esophagus with metastasis Status: Chronic (7) Fatigue Status: Acute (8) Protein-calorie malnutrition, moderate Status: Acute (9) Physical deconditioning Status: Acute (10) GERD (gastroesophageal reflux disease) Status: Acute (11) Urinary retention Status: Chronic - Transfer Medications Prescriptions: HYDROcodone/Acet 5/325 mg [[place] 5-325 mg] 1 tab PO Q4HR PRN #20 tab PRN Reason: Moderate Pain (4-6) Home Medications: Glycopyrrolate [Robinul] 1 mg PO TID #90 tablet 05/01/17 [Rx] Tamsulosin [Flomax] 0.4 mg PO DAILY 05/01/17 [History] Capecitabine [Xeloda] 1,000 mg PO BID #120 tablet 05/15/17 [Rx] Finasteride [Proscar] 5 mg PO DAILY 05/15/17 [History] Dexamethasone [Decadron] 4 mg PO Q8HR #60 tab 05/23/17 [Rx] metFORMIN [Glucophage] 500 mg PO BID #60 tablet 05/23/17 [Rx] Walker Wo Wheels [CHENTE WALKER] 1 each .ROUTE AD #1 each 05/31/17 [Rx] Acetaminophen [Tylenol] 500 mg PO Q6HR PRN #0 06/04/17 [Rx] Docusate [Colace] 100 mg PO BID PRN 06/04/17 [Rx] Famotidine [Pepcid] 20 mg PO BID tab 06/04/17 [Rx] Ferrous Sulfate 325 mg PO BIDWM tab 06/04/17 [Rx] HYDROcodone/Acet 5/325 mg [[place] 5-325 mg] 1 tab PO Q4HR PRN #20 tab 06/04/17 [ Rx] Allergies/Adverse Reactions: Allergies Penicillins [PCN] Adverse Reaction (Verified 05/31/17 20:51) Hives - Respiratory Orders Smoking Cessation: Smoking cessation has been advised. For more information, call the [place] Tobacco Quit Line at 4-563-KURP-NOW. CERTIFICATION: I certify that the transfer of the above named patient to an Extended Care Facility is necessary for the continuing treatment of the diagnosis listed. The above information is true and accurate reflection of patient's current condition. Confidential - Redisclosure prohibited without a patient's written consent.
== END 2017-06-04 15:02 | DRG 812 ==
LOC: EMEROO 17:26 → INTOOBSV 19:12 → 3ANU 19:12
PROVIDERS: ADMIT Internal Medicine; ATTEND Family Medicine

== ENCOUNTER 2017-06-19 11:19 | Inpatient (IN) ==
[2017-06-19] MEDS ORDERED: Hydrocortisone Sodium Succ 100 MG/2 ML VIAL ONE (11:24)
[2017-06-19] MEDS ORDERED: 0.9 % Sodium Chloride 2,000 ML ONE (11:27)
[2017-06-19] MEDS ORDERED: Hydrocortisone Sodium Succ 100 MG/2 ML VIAL IVP ONE (11:38)
[2017-06-19 11:45] LABS: Hematocrit 27.9 % (37.5-50.1); Mean Corpuscular HGB Conc 28.7 g/dL (31.6-35.5); Mean Corpuscular Hemoglobin 26.8 pg (28.0-33.3); Mean Platelet Volume 10.1 fL (9.4-12.4); Platelet Count 356 K/mcL (140-400); Red Blood Count 2.98 M/mcL (4.19-5.50); Red Cell Distribution Width 29.9 % (11.5-14.5)
[2017-06-19 11:46] LABS: Mean Corpuscular Volume 93.6 fL (83.0-100.0)
[2017-06-19 11:50] LABS: INR 1.2; Prothrombin Time 13.5 Seconds (9.4-12.1)
[2017-06-19] MEDS: Norepinephrine 4 MG in D5% in Water 250 ML IVC SCH ×2 (11:50→20:26)
[2017-06-19 11:53] LABS: Activated Partial Thrombo Time 32.4 Seconds (26.0-36.0)
[2017-06-19] MEDS ORDERED: Piperacillin/Tazobactam 3.375 GM in D5% in Water (Mini-Bag+) 100 ML IVPB ONE (11:56)
[2017-06-19] MEDS ORDERED: *HR* Midazolam HCl 5 MG/5 ML VIAL IVP ONE (11:57)
[2017-06-19] MEDS ORDERED: *HR* Etomidate 20 MG/10 ML AMPUL IVP ONE (11:57)
[2017-06-19 11:58] LABS: Bilirubin,Urine Negative (Negative); Blood,Urine Small (Negative); Clarity,Urine Turbid (Clear); Color,Urine Amber (Yellow); Glucose,Urine (UA) Normal (Normal); Ketones,Urine Negative (Negative); Leukocyte Esterase,Urine Moderate (Negative); Nitrite,Urine Negative (Negative); PH,Urine >=9.0 pH Units (5.0-8.0); Protein,Urine >=300 mg/dL (Neg-Trace); Specific Gravity,Urine 1.015 (1.010-1.025); Urobilinogen,Urine Normal (Normal)
[2017-06-19 11:59] LABS: RBC,Urine 0-3 per hpf (0-3)
[2017-06-19 12:00] LABS: Amorphous Sediment,Urine Many (Few); Bacteria,Urine Many per hpf (None-Few); Mucus,Urine Many (Few); Triple Phosphate Crystal,Urine Present
[2017-06-19] MEDS ORDERED: Vancomycin 1 EACH in D5% in Water 250 ML IVPB SCH (12:00)
[2017-06-19 12:05] LABS: Albumin 2.9 g/dL (3.5-5.0); Albumin/Globulin Ratio 0.9 (1.1-2.2); Bilirubin,Direct 0.3 mg/dL (0.0-0.5); Bilirubin,Indirect 0.3 mg/dL (0.0-1.2); Bilirubin,Total 0.6 mg/dL (0.2-1.2); Calcium 9.4 mg/dL (8.6-10.8); Globulin 3.4 g/dL (2.4-3.5); Potassium 5.3 mEq/L (3.5-4.5); Total Protein 6.3 g/dL (6.0-8.3)
[2017-06-19 12:08] LABS: Lymphocytes # 0.2 K/mcL (0.6-4.6); Monocytes # 0.1 K/mcL (0.0-1.3); Neutrophils # 9.2 K/mcL (1.6-8.9)
[2017-06-19 12:09] LABS: Platelet Estimate Normal (Normal); Poikilocytosis 1+ (Not Present)
[2017-06-19 12:10] LABS: Anisocytosis 3+ (Not Present); Polychromasia 3+ (Not Present)
[2017-06-19 12:11] LABS: Hypochromasia Present (Not Present)
[2017-06-19] MEDS ORDERED: *HR* Midazolam HCl 5 MG/ML VIAL IVP ONE (12:15)
[2017-06-19] MEDS ORDERED: Norepinephrine 4 MG in D5% in Water 250 ML IVC SCH (12:15)
[2017-06-19] MEDS ORDERED: *HR* Propofol 500 MG/50 ML BOTTLE IVP ONE (12:22)
[2017-06-19 12:26] LABS: ABG Base Excess -15.5 mEq/L (-2.0 to 3.0); ABG HCO3 12.7 mEQ/L (21-27); ABG Oxygen Saturation 80 % (95-98); ABG PCO2 39 mmHg (35-45); ABG PO2 60 mmHg (85-104); ABG TCO2 13.9 mEq/L (20-26)
[2017-06-19] MEDS ORDERED: Vancomycin 1,000 MG in D5% in Water 250 ML IVPB ONE (12:28)
[2017-06-19 12:30] LABS: ABG PH 7.12 pH Units (7.32-7.45); Blood Gas FiO2 40 %
[2017-06-19 12:57] LABS: Magnesium 2.6 mg/dL (1.6-2.6); Phosphorous 8.4 mg/dL (2.3-4.7)
--- NOTE | 2017-06-19 13:04 | Emergency Department Note ---
Disposition Clinical Impression: Acute kidney insufficiency Altered mental status Qualifiers: Altered mental status type: disorientation Qualified Code(s): R41.0 - Disorientation, unspecified Esophageal cancer Qualifiers: Malignant neoplasm of esophagus location: unspecified location Qualified Code(s ): C15.9 - Malignant neoplasm of esophagus, unspecified Urinary tract infection Qualifiers: Urinary tract infection type: site unspecified Hematuria presence: without hematuria Qualified Code(s): N39.0 - Urinary tract infection, site not specified Disposition: Admitted As Inpatient Condition: Critical Forms: ED Satisfaction Letter Time of Disposition: 14:51 Altered Mental Status HPI - General Chief Complaint: ED Altered Mental Status Stated Complaint: unresponsive Time Seen by Provider: 06/19/17 11:37 Source: EMS Mode of arrival: EMS Limitations: altered mental status Nursing Notes Reviewed: Yes Vital Signs Reviewed: Yes - History of Present Illness MD complaint: altered mental status Onset (ago): day(s) Pain Severity: mild Consistency of Symptoms: waxing and waning Context: other - Related Data Home Medications Medication Instructions Recorded Confirmed Tamsulosin [Flomax] 0.4 mg PO DAILY 05/01/17 06/19/17 Finasteride [Proscar] 5 mg PO DAILY 05/15/17 06/19/17 Previous Rx's Medication Instructions Recorded Glycopyrrolate [Robinul] 1 mg PO TID #90 tablet 05/01/17 Capecitabine [Xeloda] 1,000 mg PO BID #120 tablet 05/15/17 Dexamethasone [Decadron] 4 mg PO Q8HR #60 tab 05/23/17 metFORMIN [Glucophage] 500 mg PO BID #60 tablet 05/23/17 Acetaminophen [Tylenol] 500 mg PO Q6HR PRN #0 06/04/17 Docusate [Colace] 100 mg PO BID PRN 06/04/17 Famotidine [Pepcid] 20 mg PO BID tab 06/04/17 Ferrous Sulfate 325 mg PO BIDWM tab 06/04/17 HYDROcodone/Acet 5/325 mg [[place] 1 tab PO Q4HR PRN #20 tab 06/04/17 5-325 mg] Allergies Allergy/AdvReac Type Severity Reaction Status Date / Time Penicillins [PCN] AdvReac Hives Verified 06/19/17 11:29 Limitations: ROS unobtainable due to patients medical condition Past Medical History - Past Medical History Attestation: Yes The following information was validated with the patient. Source: old records reviewed Medical history: Reports: cancer, diabetes, other Psychiatric history: Reports: no psych history - Social History Smoking Status: Never smoker Smokeless Tobacco Status: No Alcohol use: Reports: none Drug use: Reports: none Physical Exam - General Limitations: altered mental status - Head Head exam: atraumatic, normocephalic, normal inspection - Eye Eye exam: Present: other (See dictation) - ENT ENT exam: mucous membranes dry - Neck Neck exam: Present: normal inspection, full ROM, trachea midline. Absent: tenderness - Chest Chest inspection: Present: normal inspection. Absent: symmetric chest wall rise , tenderness - Respiratory Respiratory exam: Present: normal lung sounds bilaterally. Absent: respiratory distress, wheezes - Cardiovascular Cardiovascular exam: Present: normal rhythm, tachycardia - Abdominal Exam Abdominal exam: Present: soft - Extremities Exam Extremities exam: Present: normal inspection Course Course Narrative: Patient seen and examined at the time of arrival. See history of present illness. 61-year-old male presents by EMS from [facility]. Patient was found to have decreased responsiveness. 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 Currently being provided with chemoradiation therapy. Vital signs on presentation and during transit were concerning for tachycardia as well as hypotension. Patient's mental status is waxed and waned even during transport. Accu-Chek E initially was 220. My physical exam on presentation this is a very fair cachectic thin appearing male who presents today with decreased responsiveness and inability to follow commands or answer questions. Head is atraumatic pupils initially were dilated to 4 mm bilaterally and minimally if not nonreactive. He had a lateral gaze on initial presentation. Trachea is midline his oropharynx is dry and patent at this time. He does not have any stridor. Lungs are clear heart is regular but tachycardic with intermittent PVCs. Abdomen is soft no guarding no rigidity. Extremities appear to be normal and no bruising or trauma. Patient is unable to follow commands initially. Patient is currently a full code based on history from the outside facility. Vital signs are concerning for decompensation. Attempted multiple times contact family prior to medical intervention. Patient has minimal gag reflex but his pulse ox and vital signs did seem to be responsive to fluids and oxygen. The port was accessed in his left anterior chest wall. Patient is provided with hydrocortisone for stress dose steroids. And emergent intubation was elected to be completed at this time secondary to patient's inability to maintain airway and is waxing and waning mental status. Intermittently the patient will respond to verbal stimuli with blinking but then goes into a locked and obtunded phase shortly after. EKG chest x-ray CT of the head urinalysis blood cultures and broad-spectrum panel to be completed at this time. Doses of antibiotic including vancomycin and Rocephin for pneumonia to be ordered at this time. Patient is concerning for possible intracranial bleed or spontaneous hemorrhagic conversion secondary to the metastatic lesions in his brain. Elective intubation completed by the mid-level provider Raysa Martinez. One time attempt was completed video laryngoscope were no complications. See the documented procedure note in my procedure course. Otherwise patient will be provided with norepinephrine for blood pressure maintenance fluids antibiotics and stabilization of his condition into the family is at bedside. Patient is concerning for clinical illness and most likely would have within the next 24 hours of intervention was not pursued. Patient has a terminal illness at this time the does not appear to be responding to symptoms and medical intervention. Disposition will be admission and thus family - Reevaluation(s) Reevaluation #1: Patient has progression of metastatic lesions in the brain and lungs and abdomen. Family is at the bedside they determined that his wishes would be DO NOT INTUBATE do not do cardiac resuscitation and to provide regular medical intervention as needed. At this point patient is intubated and vital signs have stabilized with IV blood pressure medication and fluids. I contacted the ICU attending Dr. rios. He will take the patient to the ICU due to most likely terminally extubate in the next 24 hours. Family understands that if we extubate him there is a good chance that he could pass away. They are comfortable with this plan considering that since that of his wishes. Patient did not wish to have intubation or mechanical ventilation provided. We were unknown to us prior to the intubation be completed here in the emergency room. Family appreciates our concern understands why we intubated him. They also are comfortable with the projected plan of being admitted to the ICU for eventual extubation whether or not he is medically stable. This information was passed on to the intensive care physician. Patient is showing signs of progression of a urinary tract infection with renal insufficiency. He also has multiple electrolyte abnormalities. This is most likely consistent with chronic deterioration secondary to his metastatic disease and most likely right pending terminal illness. Patient is critically ill and most likely will during this hospital course. Hospice will be advised as needed. The weaver [employer] was at the bedside along with the social work specialist. Appropriate intervention as well as management were discussed. Patient is otherwise stable. Transferred to the ICU. Soft restraints applied at the bedside to prevent against disruption of medical intervention. Otherwise patient is stable. Titrations of drips antibiotics fluids given at this point. Admission the ICU to be completed. DNR CCA DO NOT INTUBATE do not cardiac resuscitate orders were signed by myself and the at the bedside. This is within the patient's wishes and confirmed by family who is here. Patient is otherwise clinically stable with great concern for decompensation and end-of-life here in the emergency room or hospital. Family understands this and is comfortable and appreciates our care. Patient was provided with 100 mg of hydrocortisone for treatment of swelling as well as adrenal insufficiency Time: 14:46 Vital Signs Temperature 99.2 F 06/19/17 11:21 Pulse Rate 120 06/19/17 11:21 Respiratory Rate 20 06/19/17 11:21 Blood Pressure 103/86 06/19/17 11:21 O2 Sat by Pulse Oximetry 100 06/19/17 11:21 Temperature 99.2 F 06/19/17 11:21 Pulse Rate 113 06/19/17 12:57 Respiratory Rate 18 06/19/17 12:57 Blood Pressure 105/85 06/19/17 12:57 O2 Sat by Pulse Oximetry 95 06/19/17 12:57 Oxygen Delivery Oxygen Delivery Ventilator Procedures - Intubation Time out performed: No sedative: Etomidate Mg Given: 20 Laryngoscope: fiber optic video scope ET Tube Size: Oral Tube Secured Depth (cm): 24 Tube Secured Location: lips Tube Placement Confirmation: visualized tube passing through cords, equal breath sounds bilaterally, no breath sounds over epigastrium, confirmation by capnometry Patient Tolerated Procedure: well Intubation Complications: none Altered Mental Status - MDM Narrative Medical decision making narrative: Altered mental status, hypoxia, metastatic esophageal cancer renal failure, dehydration, urinary tract infection - Medical Records Medical records reviewed: Yes I reviewed the patient's medical records. - Lab Data Lab results reviewed: Yes I reviewed the patient's lab results. Result diagrams: 06/19/17 11:34 06/19/17 11:34 Lab Results 06/19/17 06/19/17 06/19/17 Range/Units 11:34 11:34 11:34 WBC 9.5 (4.3-11.1) K/mcL RBC 2.98 L (4.19-5.50) M/mcL Hgb 8.0 L (12.9-16.9) g/dL Hct 27.9 L (37.5-50.1) % MCV 93.6 D (83.0-100.0) fL MCH 26.8 L (28.0-33.3) pg MCHC 28.7 L (31.6-35.5) g/dL RDW 29.9 H (11.5-14.5) % Plt Count 356 D (140-400) K/mcL MPV 10.1 (9.4-12.4) fL Seg Neutrophils % 89.0 % Band Neutrophils % 8.0 H (0-4) % Lymphocytes % 2.0 % Monocytes % 1.0 % Neutrophils # 9.2 H (1.6-8.9) K/mcL Lymphocytes # 0.2 L (0.6-4.6) K/mcL Monocytes # 0.1 (0.0-1.3) K/mcL Nucleated RBCs/100 WBC 2.0 H (0) /100 WBC Platelet Estimate Normal (Normal) Polychromasia 3+ A (Not Present) Hypochromasia Present A (Not Present) Poikilocytosis 1+ A (Not Present) Anisocytosis 3+ A (Not Present) PT 13.5 H (9.4-12.1) Seconds INR 1.2 APTT 32.4 (26.0-36.0) Seconds ABG pH (7.32-7.45) pH Units ABG pCO2 (35-45) mmHg ABG pO2 (85-104) mmHg ABG HCO3 (21-27) mEQ/L ABG Total CO2 (20-26) mEq/L ABG O2 Saturation (95-98) % ABG Base Excess (-2.0 to 3.0) mEq/L Blood Gas Modality Inspired O2 % Sodium (136-145) mEq/L Potassium (3.5-4.5) mEq/L Chloride (98-109) mEq/L Carbon Dioxide (19-29) mEq/L BUN (8-26) mg/dL Creatinine (0.72-1.25) mg/dL Est GFR ( Amer) (> 60) Est GFR (Non-Af Amer) (> 60) BUN/Creatinine Ratio (6-26) Glucose (70-99) mg/dL Calculated Osmolality (280-300) Calcium (8.6-10.8) mg/dL Phosphorus (2.3-4.7) mg/dL Magnesium (1.6-2.6) mg/dL Total Bilirubin (0.2-1.2) mg/dL Direct Bilirubin (0.0-0.5) mg/dL Indirect Bilirubin (0.0-1.2) mg/dL AST (5-34) Units/L ALT (0-55) Units/L Alkaline Phosphatase (38-126) Units/L Troponin I (0-0.03) ng/mL Serum Total Protein (6.0-8.3) g/dL Albumin (3.5-5.0) g/dL Globulin (2.4-3.5) g/dL Albumin/Globulin Ratio (1.1-2.2) Urine Color [place] A (Yellow) Urine Clarity Turbid A (Clear) Urine pH >=9.0 H (5.0-8.0) pH Units Ur Specific [place] 1.015 (1.010-1.025) Urine Protein >=300 H (Neg-Trace) mg/dL Urine Glucose (UA) Normal (Normal) mg/dL Urine Ketones Negative (Negative) mg/dL Urine Blood Small H (Negative) Urine Nitrite Negative (Negative) Urine Bilirubin Negative (Negative) Urine Urobilinogen Normal (Normal) mg/dL Ur Leukocyte Esterase Moderate H (Negative) Urine Microscopic RBC 0-3 (0-3) per hpf Urine Microscopic WBC 5-15 H (0-3) per hpf Triple Phos Crystals Present Amorphous Sediment Many H (Few) Urine Bacteria Many H (None-Few) per hpf Urine Mucus Many H (Few) Ur Culture Indicated? YES A (NO) 06/19/17 06/19/17 06/19/17 Range/Units 11:34 11:34 12:20 WBC (4.3-11.1) K/mcL RBC (4.19-5.50) M/mcL Hgb (12.9-16.9) g/dL Hct (37.5-50.1) % MCV (83.0-100.0) fL MCH (28.0-33.3) pg MCHC (31.6-35.5) g/dL RDW (11.5-14.5) % Plt Count (140-400) K/mcL MPV (9.4-12.4) fL Seg Neutrophils % % Band Neutrophils % (0-4) % Lymphocytes % % Monocytes % % Neutrophils # (1.6-8.9) K/mcL Lymphocytes # (0.6-4.6) K/mcL Monocytes # (0.0-1.3) K/mcL Nucleated RBCs/100 WBC (0) /100 WBC Platelet Estimate (Normal) Polychromasia (Not Present) Hypochromasia (Not Present) Poikilocytosis (Not Present) Anisocytosis (Not Present) PT (9.4-12.1) Seconds INR APTT (26.0-36.0) Seconds ABG pH 7.12 L* (7.32-7.45) pH Units ABG pCO2 39 (35-45) mmHg ABG pO2 60 L (85-104) mmHg ABG HCO3 12.7 L (21-27) mEQ/L ABG Total CO2 13.9 L (20-26) mEq/L ABG O2 Saturation 80 L (95-98) % ABG Base Excess -15.5 L (-2.0 to 3.0) mEq/L Blood Gas Modality VENT Inspired O2 40 % Sodium 138 (136-145) mEq/L Potassium 5.3 H (3.5-4.5) mEq/L Chloride 102 (98-109) mEq/L Carbon Dioxide 14 L (19-29) mEq/L BUN 180 H (8-26) mg/dL Creatinine 4.66 H (0.72-1.25) mg/dL Est GFR ( Amer) 16 L (> 60) Est GFR (Non-Af Amer) 13 L (> 60) BUN/Creatinine Ratio 39 H (6-26) Glucose 277 H (70-99) mg/dL Calculated Osmolality 356 H (280-300) Calcium 9.4 (8.6-10.8) mg/dL Phosphorus (2.3-4.7) mg/dL Magnesium (1.6-2.6) mg/dL Total Bilirubin 0.6 (0.2-1.2) mg/dL Direct Bilirubin 0.3 (0.0-0.5) mg/dL Indirect Bilirubin 0.3 (0.0-1.2) mg/dL AST 221 H (5-34) Units/L ALT 121 H (0-55) Units/L Alkaline Phosphatase 423 H (38-126) Units/L Troponin I 0.02 (0-0.03) ng/mL Serum Total Protein 6.3 (6.0-8.3) g/dL Albumin 2.9 L (3.5-5.0) g/dL Globulin 3.4 (2.4-3.5) g/dL Albumin/Globulin Ratio 0.9 L (1.1-2.2) Urine Color (Yellow) Urine Clarity (Clear) Urine pH (5.0-8.0) pH Units Ur Specific [place] (1.010-1.025) Urine Protein (Neg-Trace) mg/dL Urine Glucose (UA) (Normal) mg/dL Urine Ketones (Negative) mg/dL Urine Blood (Negative) Urine Nitrite (Negative) Urine Bilirubin (Negative) Urine Urobilinogen (Normal) mg/dL Ur Leukocyte Esterase (Negative) Urine Microscopic RBC (0-3) per hpf Urine Microscopic WBC (0-3) per hpf Triple Phos Crystals Amorphous Sediment (Few) Urine Bacteria (None-Few) per hpf Urine Mucus (Few) Ur Culture Indicated? (NO) 06/19/17 Range/Units 12:33 WBC (4.3-11.1) K/mcL RBC (4.19-5.50) M/mcL Hgb (12.9-16.9) g/dL Hct (37.5-50.1) % MCV (83.0-100.0) fL MCH (28.0-33.3) pg MCHC (31.6-35.5) g/dL RDW (11.5-14.5) % Plt Count (140-400) K/mcL MPV (9.4-12.4) fL Seg Neutrophils % % Band Neutrophils % (0-4) % Lymphocytes % % Monocytes % % Neutrophils # (1.6-8.9) K/mcL Lymphocytes # (0.6-4.6) K/mcL Monocytes # (0.0-1.3) K/mcL Nucleated RBCs/100 WBC (0) /100 WBC Platelet Estimate (Normal) Polychromasia (Not Present) Hypochromasia (Not Present) Poikilocytosis (Not Present) Anisocytosis (Not Present) PT (9.4-12.1) Seconds INR APTT (26.0-36.0) Seconds ABG pH (7.32-7.45) pH Units ABG pCO2 (35-45) mmHg ABG pO2 (85-104) mmHg ABG HCO3 (21-27) mEQ/L ABG Total CO2 (20-26) mEq/L ABG O2 Saturation (95-98) % ABG Base Excess (-2.0 to 3.0) mEq/L Blood Gas Modality Inspired O2 % Sodium (136-145) mEq/L Potassium (3.5-4.5) mEq/L Chloride (98-109) mEq/L Carbon Dioxide (19-29) mEq/L BUN (8-26) mg/dL Creatinine (0.72-1.25) mg/dL Est GFR ( Amer) (> 60) Est GFR (Non-Af Amer) (> 60) BUN/Creatinine Ratio (6-26) Glucose (70-99) mg/dL Calculated Osmolality (280-300) Calcium (8.6-10.8) mg/dL Phosphorus 8.4 H (2.3-4.7) mg/dL Magnesium 2.6 (1.6-2.6) mg/dL Total Bilirubin (0.2-1.2) mg/dL Direct Bilirubin (0.0-0.5) mg/dL Indirect Bilirubin (0.0-1.2) mg/dL AST (5-34) Units/L ALT (0-55) Units/L Alkaline Phosphatase (38-126) Units/L Troponin I (0-0.03) ng/mL Serum Total Protein (6.0-8.3) g/dL Albumin (3.5-5.0) g/dL Globulin (2.4-3.5) g/dL Albumin/Globulin Ratio (1.1-2.2) Urine Color (Yellow) Urine Clarity (Clear) Urine pH (5.0-8.0) pH Units Ur Specific [place] (1.010-1.025) Urine Protein (Neg-Trace) mg/dL Urine Glucose (UA) (Normal) mg/dL Urine Ketones (Negative) mg/dL Urine Blood (Negative) Urine Nitrite (Negative) Urine Bilirubin (Negative) Urine Urobilinogen (Normal) mg/dL Ur Leukocyte Esterase (Negative) Urine Microscopic RBC (0-3) per hpf Urine Microscopic WBC (0-3) per hpf Triple Phos Crystals Amorphous Sediment (Few) Urine Bacteria (None-Few) per hpf Urine Mucus (Few) Ur Culture Indicated? (NO) - Radiology Data Radiology results reviewed: Yes I reviewed the patient's radiology results. CT imaging of the head shows progression of the metastatic lesions in the brain along with edema - EKG Data EKG attestation: Yes I reviewed and interpreted this EKG. EKG shows normal: sinus rhythm, axis, intervals, QRS complexes, ST-T waves Rate: tachycardia Rhythm: NSR, PVC's Knott/QRS: normal When compared to previous EKG there are: no significant changes Interpretation: no acute changes, unchanged when compared to prior tracing (date ) (EKG shows sinus rhythm with intermittent premature atrial or ventricular contractions. P waves are noted on the evaluation. He is tachycardic 05/31/17) TPA Checklist - LKW: 3-4.5 hrs Add. Warnings/Precautions Patient/family understanding: The patient/family members have been counseled and understood the risk, benefit , and alternatives of treatment. Critical Care Time Critical Care Time: Yes Total Critical Care Time: 60 Attestation: Critical care performed: Time is exclusive of separately billable procedures. Time includes: direct patient care, patient reassessment, coordination of patient care, interpretation of data (laboratory data, radiology data, and respiratory data), review of patient's medical records, medical consultation and documentation of patient care. Procedures included in critical care time: Procedures excluded from critical care time:
[2017-06-19 13:59] LABS: INR 1.2; Prothrombin Time 13.3 Seconds (9.4-12.1)
[2017-06-19 14:01] LABS: Activated Partial Thrombo Time 23.7 Seconds (26.0-36.0)
[2017-06-19] MEDS ORDERED: Dexamethasone 4 MG/ML VIAL IVP ONE (14:48)
--- NOTE | 2017-06-19 16:40 | Electrocardiograph Report ---
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
[2017-06-19] MEDS ORDERED: Propofol 500 MG/50 ML INFUS..BTL ONE (16:50)
[2017-06-19] MEDS ORDERED: *HR* Morphine 2 MG/ML SYRINGE IVP PRN (17:22)
[2017-06-19] MEDS ORDERED: Naloxone 0.4 MG/ML INJ IVP PRN (17:22)
--- NOTE | 2017-06-19 17:33 | Pulmonology History & Physical ---
<Mejia Pastor - Last Filed: 06/19/17 17:31> Date of Encounter: 06/19/17 Time of Encounter: 17:00 Assessment and Plan (1) Acute respiratory failure Current visit: Yes Status: Acute History of head and neck cancer with metastases to brain and multiple organs. Presented today from nursing facility due to being unresponsive. Patient had significant acidosis, acute renal failure, elevated transaminases, hperkalemia, possible UTI, acute respiratory failure and was intubated in the ED. Patient also on norepinephrine, stress dose steroids due to hypotension. Family arrived in ED and confirmed that patient is DNI/DNR/comfort care only. They are waiting for family to arrive from [place] and then will terminally extubate the patient. They want comfort care only at this point with no other interventions. They have stated that if patient passes away naturally before then, nothing is to be done to keep the patient alive. Bicarbonate drip started to help with acidosis. Terminally extubate once all family is present. Qualifiers: Respiratory failure complication: hypoxia Qualified Code(s): J96.01 - Acute respiratory failure with hypoxia (2) Primary adenocarcinoma of esophagus with metastasis Current visit: No Status: Chronic (3) Metastasis from esophageal cancer Current visit: No Status: Chronic (4) Brain metastasis Current visit: No Status: Acute (5) Acute renal failure Current visit: Yes Status: Acute Creatinine 4.66, up from baseline around 1.00. GFR 13. Qualifiers: Acute renal failure type: unspecified Qualified Code(s): N17.9 - Acute kidney failure, unspecified (6) Acidosis Current visit: Yes Status: Acute Bicarb drip started. (7) Hyperkalemia Current visit: Yes Status: Acute (8) Elevated transaminase level Current visit: Yes Status: Acute (9) Urinary tract infection Current visit: Yes Status: Acute Patient covered with ceftriaxone 1000 mg in the ER. Qualifiers: Urinary tract infection type: acute cystitis Hematuria presence: without hematuria Qualified Code(s): N30.00 - Acute cystitis without hematuria (10) Anemia Current visit: No Status: Acute Chronic iron deficiency anemia Qualifiers: Anemia type: iron deficiency Iron deficiency anemia type: unspecified iron deficiency Qualified Code(s): D50.9 - Iron deficiency anemia, unspecified (11) Physical deconditioning Current visit: No Status: Acute (12) Diabetes Current visit: No Status: Chronic Glucose 276. Qualifiers: Diabetes mellitus type: type 2 Diabetes mellitus complication status: without complication Diabetes mellitus terminal carman insulin use: without mcfp use Qualified Code(s): E11.9 - Type 2 diabetes mellitus without complications (13) DVT prophylaxis Current visit: No Status: Acute SCDs History of Present Illness Chief complaint: unresponsive HPI: Mr. Wakefield is a 61 year old male with past medical history of esophageal cancer with metastasis to the brain and multiple organs, . He presented today from [facility] due to being found unresponsive, obtunded with minimal gag reflex and waxing and waning eye movement. Patient was hypotensive , tachycardic, found to be acidotic on presentation. He was intubated and started on norepinephrine drip and stress dose steroids for hypotension in the ER. At that time, it was unclear as to what the CODE STATUS of the patient was. Head CT showed multiple metastatic lesions but no other acute intracranial abnormality, chest x-ray showed minimal ground glass opacification , left greater than right. UA showed possible UTI, patient was given Rocephin in the ER. Family eventually arrived to ER and confirmed patient was DNI/DNR. However, they did not want to extubate or stop pressors until family members were able to arrive. They are currently waiting for family to arrive from [place] and then will terminally extubate the patient once all family members are present. Family at bedside had stated that if patient passes away naturally before then, nothing is to be done to keep the patient alive. Past Med Surg Social Fam HX - Past Medical History Medical history: cancer, diabetes, other Psychiatric history: no psych history - Social History Smoking Status: Never smoker Smokeless Tobacco Status: No Alcohol use: none Drug use: none Medications and Allergies Glycopyrrolate [Robinul] 1 mg PO TID #90 tablet 05/01/17 [Rx] Tamsulosin [Flomax] 0.4 mg PO DAILY 05/01/17 [History] Capecitabine [Xeloda] 1,000 mg PO BID #120 tablet 05/15/17 [Rx] Finasteride [Proscar] 5 mg PO DAILY 05/15/17 [History] Dexamethasone [Decadron] 4 mg PO Q8HR #60 tab 05/23/17 [Rx] metFORMIN [Glucophage] 500 mg PO BID #60 tablet 05/23/17 [Rx] Acetaminophen [Tylenol] 500 mg PO Q6HR PRN #0 06/04/17 [Rx] Docusate [Colace] 100 mg PO BID PRN 06/04/17 [Rx] Famotidine [Pepcid] 20 mg PO BID tab 06/04/17 [Rx] Ferrous Sulfate 325 mg PO BIDWM tab 06/04/17 [Rx] HYDROcodone/Acet 5/325 mg [[place] 5-325 mg] 1 tab PO Q4HR PRN #20 tab 06/04/17 [ Rx] Allergies Penicillins [PCN] Adverse Reaction (Verified 06/19/17 11:29) Hives ROS unobtainable: due to mental status All Systems: A 10-system review of systems was performed and is negative for pertinent findings except as documented above in the HPI. Physical Examination Vital Signs: Vital Signs, Last 4 Hours Pulse Resp BP Pulse Ox 06/19/17 16:55 20 111/78 06/19/17 16:41 107 20 111/78 100 06/19/17 16:03 113 20 103/73 100 06/19/17 15:53 110 20 115/65 100 06/19/17 15:37 117 20 112/73 100 General appearance: comatose, other (Cachectic, intubated, not following commands) Eyes: nonicteric ENT: oropharynx dry, other (ET tube present) Neck: supple Effort: other (Rhonchi in bilateral lower lobes. Currently being ventilated through the ET tube.) Inspection: normal Auscultation: bilateral: rhonchi Cardiovascular: other (Sinus tachycardia) Gastrointestinal: soft, non-distended, other (Scaphoid) Integumentary: other (Diffuse pallor) Extremities: cool, other (Mild bruising of bilateral shins. +1 over 4 posterior tibial pulses bilaterally. Cap refill greater than 3 seconds of toes bilaterally.) Musculoskeletal: other (Diffuse muscle wasting, cachectic) other (Unresponsive, pupils equal and round, minimally reactive to light) other Results - Laboratory Findings CBC and BMP: 06/19/17 11:34 06/19/17 11:34 ABG ABG pH 7.12 pH Units (7.32-7.45) L* 06/19/17 12:20 ABG pCO2 39 mmHg (35-45) 06/19/17 12:20 ABG pO2 60 mmHg (85-104) L 06/19/17 12:20 ABG O2 Saturation 80 % (95-98) L 06/19/17 12:20 PT/INR, D-dimer PT 13.3 Seconds (9.4-12.1) H 06/19/17 12:33 Abnormal lab findings: Abnormal lab results RBC 2.98 M/mcL (4.19-5.50) L 06/19/17 11:34 Hgb 8.0 g/dL (12.9-16.9) L 06/19/17 11:34 Hct 27.9 % (37.5-50.1) L 06/19/17 11:34 MCH 26.8 pg (28.0-33.3) L 06/19/17 11:34 MCHC 28.7 g/dL (31.6-35.5) L 06/19/17 11:34 RDW 29.9 % (11.5-14.5) H 06/19/17 11:34 Band Neutrophils % 8.0 % (0-4) H 06/19/17 11:34 Neutrophils # 9.2 K/mcL (1.6-8.9) H 06/19/17 11:34 Lymphocytes # 0.2 K/mcL (0.6-4.6) L 06/19/17 11:34 Nucleated RBCs/100 WBC 2.0 /100 WBC (0) H 06/19/17 11:34 Polychromasia 3+ (Not Present) A 06/19/17 11:34 Hypochromasia Present (Not Present) A 06/19/17 11:34 Poikilocytosis 1+ (Not Present) A 06/19/17 11:34 Anisocytosis 3+ (Not Present) A 06/19/17 11:34 PT 13.3 Seconds (9.4-12.1) H 06/19/17 12:33 APTT 23.7 Seconds (26.0-36.0) L 06/19/17 12:33 ABG pH 7.12 pH Units (7.32-7.45) L* 06/19/17 12:20 ABG pO2 60 mmHg (85-104) L 06/19/17 12:20 ABG HCO3 12.7 mEQ/L (21-27) L 06/19/17 12:20 ABG Total CO2 13.9 mEq/L (20-26) L 06/19/17 12:20 ABG O2 Saturation 80 % (95-98) L 06/19/17 12:20 ABG Base Excess -15.5 mEq/L (-2.0 to 3.0) L 06/19/17 12:20 Potassium 5.3 mEq/L (3.5-4.5) H 06/19/17 11:34 Carbon Dioxide 14 mEq/L (19-29) L 06/19/17 11:34 BUN 180 mg/dL (8-26) H 06/19/17 11:34 Creatinine 4.66 mg/dL (0.72-1.25) H 06/19/17 11:34 Est GFR ( Amer) 16 (> 60) L 06/19/17 11:34 Est GFR (Non-Af Amer) 13 (> 60) L 06/19/17 11:34 BUN/Creatinine Ratio 39 (6-26) H 06/19/17 11:34 Glucose 277 mg/dL (70-99) H 06/19/17 11:34 Calculated Osmolality 356 (280-300) H 06/19/17 11:34 Phosphorus 8.4 mg/dL (2.3-4.7) H 06/19/17 12:33 AST 221 Units/L (5-34) H 06/19/17 11:34 ALT 121 Units/L (0-55) H 06/19/17 11:34 Alkaline Phosphatase 423 Units/L (38-126) H 06/19/17 11:34 Albumin 2.9 g/dL (3.5-5.0) L 06/19/17 11:34 Albumin/Globulin Ratio 0.9 (1.1-2.2) L 06/19/17 11:34 Urine Color [place] (Yellow) A 06/19/17 11:34 Urine Clarity Turbid (Clear) A 06/19/17 11:34 Urine pH >=9.0 pH Units (5.0-8.0) H 06/19/17 11:34 Urine Protein >=300 mg/dL (Neg-Trace) H 06/19/17 11:34 Urine Blood Small (Negative) H 06/19/17 11:34 Ur Leukocyte Esterase Moderate (Negative) H 06/19/17 11:34 Urine Microscopic WBC 5-15 per hpf (0-3) H 06/19/17 11:34 Amorphous Sediment Many (Few) H 06/19/17 11:34 Urine Bacteria Many per hpf (None-Few) H 06/19/17 11:34 Urine Mucus Many (Few) H 06/19/17 11:34 Ur Culture Indicated? YES (NO) A 06/19/17 11:34 - Attending Attestation I examined this patient and my medical decision-making was reviewed with the Resident Physician. I agree with the documented findings, disposition and treatment plan as described except to the extent set forth below. <Rayna Lovelace M - Last Filed: 06/19/17 20:48> Date of Encounter: 06/19/17 History of Present Illness HPI: Mr. Wakefield is a 61 year old male Past Med Surg Social Fam HX - Family History Mother History Unknown: Yes All Systems: A 10-system review of systems was performed and is negative for pertinent findings except as documented above in the HPI. Physical Examination Vital Signs: Vital Signs, Last 4 Hours Temp Pulse Resp BP Pulse Ox 06/19/17 20:17 97.8 F 06/19/17 19:59 98 06/19/17 19:45 11 88/63 100 06/19/17 19:06 97 21 88/63 100 06/19/17 18:51 97.5 F L 98 20 85/60 100 06/19/17 18:00 97.5 F L 96 20 85/60 100 06/19/17 17:35 97 100 06/19/17 17:17 25 111/78 95 06/19/17 16:55 20 111/78 06/19/17 16:41 107 20 111/78 100 Results - Laboratory Findings CBC and BMP: 06/19/17 11:34 06/19/17 11:34 ABG ABG pH 7.12 pH Units (7.32-7.45) L* 06/19/17 12:20 ABG pCO2 39 mmHg (35-45) 06/19/17 12:20 ABG pO2 60 mmHg (85-104) L 06/19/17 12:20 ABG O2 Saturation 80 % (95-98) L 06/19/17 12:20 PT/INR, D-dimer PT 13.3 Seconds (9.4-12.1) H 06/19/17 12:33 Abnormal lab findings: Abnormal lab results RBC 2.98 M/mcL (4.19-5.50) L 06/19/17 11:34 Hgb 8.0 g/dL (12.9-16.9) L 06/19/17 11:34 Hct 27.9 % (37.5-50.1) L 06/19/17 11:34 MCH 26.8 pg (28.0-33.3) L 06/19/17 11:34 MCHC 28.7 g/dL (31.6-35.5) L 06/19/17 11:34 RDW 29.9 % (11.5-14.5) H 06/19/17 11:34 Band Neutrophils % 8.0 % (0-4) H 06/19/17 11:34 Neutrophils # 9.2 K/mcL (1.6-8.9) H 06/19/17 11:34 Lymphocytes # 0.2 K/mcL (0.6-4.6) L 06/19/17 11:34 Nucleated RBCs/100 WBC 2.0 /100 WBC (0) H 06/19/17 11:34 Polychromasia 3+ (Not Present) A 06/19/17 11:34 Hypochromasia Present (Not Present) A 06/19/17 11:34 Poikilocytosis 1+ (Not Present) A 06/19/17 11:34 Anisocytosis 3+ (Not Present) A 06/19/17 11:34 PT 13.3 Seconds (9.4-12.1) H 06/19/17 12:33 APTT 23.7 Seconds (26.0-36.0) L 06/19/17 12:33 ABG pH 7.12 pH Units (7.32-7.45) L* 06/19/17 12:20 ABG pO2 60 mmHg (85-104) L 06/19/17 12:20 ABG HCO3 12.7 mEQ/L (21-27) L 06/19/17 12:20 ABG Total CO2 13.9 mEq/L (20-26) L 06/19/17 12:20 ABG O2 Saturation 80 % (95-98) L 06/19/17 12:20 ABG Base Excess -15.5 mEq/L (-2.0 to 3.0) L 06/19/17 12:20 Potassium 5.3 mEq/L (3.5-4.5) H 06/19/17 11:34 Carbon Dioxide 14 mEq/L (19-29) L 06/19/17 11:34 BUN 180 mg/dL (8-26) H 06/19/17 11:34 Creatinine 4.66 mg/dL (0.72-1.25) H 06/19/17 11:34 Est GFR ( Amer) 16 (> 60) L 06/19/17 11:34 Est GFR (Non-Af Amer) 13 (> 60) L 06/19/17 11:34 BUN/Creatinine Ratio 39 (6-26) H 06/19/17 11:34 Glucose 277 mg/dL (70-99) H 06/19/17 11:34 POC Glucose 276 (58-89) H 06/19/17 17:34 Calculated Osmolality 356 (280-300) H 06/19/17 11:34 Phosphorus 8.4 mg/dL (2.3-4.7) H 06/19/17 12:33 AST 221 Units/L (5-34) H 06/19/17 11:34 ALT 121 Units/L (0-55) H 06/19/17 11:34 Alkaline Phosphatase 423 Units/L (38-126) H 06/19/17 11:34 Albumin 2.9 g/dL (3.5-5.0) L 06/19/17 11:34 Albumin/Globulin Ratio 0.9 (1.1-2.2) L 06/19/17 11:34 Urine Color [place] (Yellow) A 06/19/17 11:34 Urine Clarity Turbid (Clear) A 06/19/17 11:34 Urine pH >=9.0 pH Units (5.0-8.0) H 06/19/17 11:34 Urine Protein >=300 mg/dL (Neg-Trace) H 06/19/17 11:34 Urine Blood Small (Negative) H 06/19/17 11:34 Ur Leukocyte Esterase Moderate (Negative) H 06/19/17 11:34 Urine Microscopic WBC 5-15 per hpf (0-3) H 06/19/17 11:34 Amorphous Sediment Many (Few) H 06/19/17 11:34 Urine Bacteria Many per hpf (None-Few) H 06/19/17 11:34 Urine Mucus Many (Few) H 06/19/17 11:34 Ur Culture Indicated? YES (NO) A 06/19/17 11:34 - Attending Attestation I examined this patient and my medical decision-making was reviewed with the Resident Physician. I agree with the documented findings, disposition and treatment plan as described except to the extent set forth below. Patient seen and examined. Labs, radiology, chart personally reviewed. 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 I changed vent setting on the ventilator with increasing TV and lower RR due to evidence of breath stacking and this could be metabolic and hoping with that change, patient will be more comfortable. Cardiovascular: stable at this time, however patient will be DNR comfort care until family arrive, then plan to extubate patient. GI: Patient will be NPO Heme: DVT prophylaxis per routine ID: Empiric coverage of antibiotic.. Renal; urine out put and renal funtion reviewed. Will treat metabolic acidosis.Patient wit acute respiratory failure. Endorcine: blood glucose is monitored Lines: all lines checked and no evidence of infections Skin: skin care to prevent pressure ulcers per nursing routine care Overall very poor prognosis and will consider palliative to see patient tomorrow.
[2017-06-19] MEDS ORDERED: Lacri-Lube 3.5 GM TUBE BOTH EYES PRN (18:24)
[2017-06-19] MEDS: Famotidine 20 MG/2 ML VIAL IVP SCH (18:42)
[2017-06-19] MEDS: Sodium Bicarbonate 50 MEQ in 0.45 % Sodium Chloride 1,000 ML IVC SCH (18:43)
[2017-06-19] MEDS: Lacri-Lube 3.5 GM TUBE BOTH EYES SCH (20:25)
[2017-06-19] MEDS: Chlorhexidine Rinse 15 ML MOUTHWASH MM SCH (20:25)
[2017-06-19] MEDS ORDERED: Levofloxacin 250 MG/50 ML 250 MG/50 ML BAG IVPB SCH (21:00)
[2017-06-20] MEDS: Lacri-Lube 3.5 GM TUBE BOTH EYES SCH ×4 (04:08→13:11)
[2017-06-20 04:32] LABS: ABG Base Excess -5.2 mEq/L (-2.0 to 3.0); ABG HCO3 17.8 mEQ/L (21-27); ABG Oxygen Saturation 98 % (95-98); ABG PCO2 25 mmHg (35-45); ABG PH 7.46 pH Units (7.32-7.45); ABG PO2 102 mmHg (85-104); ABG TCO2 18.6 mEq/L (20-26)
[2017-06-20 04:33] LABS: Blood Gas FiO2 40 %
[2017-06-20] MEDS: Sodium Bicarbonate 50 MEQ in 0.45 % Sodium Chloride 1,000 ML IVC SCH (05:29)
[2017-06-20] MEDS: Famotidine 20 MG/2 ML VIAL IVP SCH (06:08)
--- NOTE | 2017-06-20 07:43 | Pulmonology Progress Note ---
<Mejia Pastor - Last Filed: 06/20/17 09:24> Date of Encounter: 06/20/17 Time of Encounter: 07:43 Assessment and Plan (1) Acute respiratory failure Current Visit: Yes Status: Acute History of head and neck cancer with metastases to brain and multiple organs. Presented from nursing facility due to being unresponsive. Patient had significant acidosis, acute renal failure, elevated transaminases, hperkalemia, possible UTI, acute respiratory failure and was intubated in the ED. Patient also on norepinephrine, stress dose steroids due to hypotension. Family has confirmed that patient is DNI/DNR/comfort care only. They are waiting for family to arrive from [place] and then will terminally extubate the patient. They want comfort care only at this point with no other interventions. They have stated that if patient passes away naturally before then, nothing is to be done to keep the patient alive. Considering discontinuing bicarbonate drip today due to corrected acidosis. Terminally extubate once all family is present. No additional labs at this time. 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 GFR 13. Qualifiers: Acute renal failure type: unspecified Qualified Code(s): N17.9 - Acute kidney failure, unspecified (6) Acidosis Current Visit: Yes Status: Acute Bicarb drip started yesterday, acidosis has improved on ABG today. Acidosis is corrected. PH now 7.46. (7) Hyperkalemia Current Visit: Yes Status: Acute (8) Elevated transaminase level Current Visit: Yes Status: Acute (9) Urinary tract infection Current Visit: Yes Status: Acute Patient covered with ceftriaxone 1000 mg in the ER. Qualifiers: Urinary tract infection type: acute cystitis Hematuria presence: without hematuria Qualified Code(s): N30.00 - Acute cystitis without hematuria (10) Anemia Current Visit: No Status: Acute Chronic iron deficiency anemia Qualifiers: Anemia type: iron deficiency Iron deficiency anemia type: unspecified iron deficiency Qualified Code(s): D50.9 - Iron deficiency anemia, unspecified (11) Physical deconditioning Current Visit: No Status: Acute (12) Diabetes Current Visit: No Status: Chronic Glucose 276s on presentation. Qualifiers: Diabetes mellitus type: type 2 Diabetes mellitus complication status: without complication Diabetes mellitus [facility] insulin use: without exterminator use Qualified Code(s): E11.9 - Type 2 diabetes mellitus without complications (13) DVT prophylaxis Current Visit: No Status: Acute SCDs Subjective Principal diagnosis: acute resp failure Interval history: No major events overnight. Blood pressures remained low 80s over 60s despite being on Levaquin. Pulse in the low 100s. Improvement in ABG. Acidosis has corrected and is now 7.46. Oxygenation has improved. Family still waiting on relative to arrive before extubating the patient. Palliative has been consulted to discuss any other wishes with the family. Objective PUL Vital signs: Last Vital Signs Temp 97.5 F L 06/20/17 04:48 Pulse 102 06/20/17 06:00 Resp 17 06/20/17 06:00 BP 107/74 06/20/17 06:00 Pulse Ox 100 06/20/17 06:00 General appearance: other (Unresponsive, cachectic, intubated, unresponsive to verbal or painful stimuli) Eyes: nonicteric ENT: oropharynx dry Neck: supple Effort: other (Rhonchi in bilateral lower lobes. Currently being ventilated through the ET tube) Cardiovascular: other (Sinus tachycardia) Gastrointestinal: soft, non-distended, other (Scaphoid) Integumentary: other (Diffuse pallor) Extremities: cool, other (Mild bruising of the bilateral oconnell, +1 over 4 posterior tibial pulses bilaterally. Cap refill greater than 3 seconds and toes bilaterally.) Musculoskeletal: other (Diffuse muscle wasting, cachectic) unable to assess due to mental status, other (Unresponsive, pupils equal and round but minimally reactive to light. Minimal gag reflex. Minimal corneal reflex.) other (Unresponsive) Ventilator Settings Ventilator Settings: Ventilator Settings, Last 8 Hours Ventilator Mode VC+ Ventilator Mode VC+ Ventilator Mode VC+ Ventilator Mode VC+ Ventilator Mode VC+ Ventilator Mode VC+ Ventilator Mode VC+ Ventilator Mode VC+ Ventilator Mode VC+ Ventilator Mode VC+ Ventilator Mode VC+ Ventilator Mode VC+ Ventilator Tidal Volume 550 Setting Ventilator Tidal Volume 550 Setting Ventilator Tidal Volume 550 Setting Ventilator Tidal Volume 550 Setting Ventilator Tidal Volume 550 Setting Ventilator Tidal Volume 550 Setting Ventilator Tidal Volume 550 Setting Ventilator Tidal Volume 550 Setting Ventilator Tidal Volume 550 Setting Ventilator Tidal Volume 550 Setting Ventilator Tidal Volume 550 Setting Ventilator Tidal Volume 550 Setting Ventilator Respiratory Rate 14 Setting Ventilator Respiratory Rate 14 Setting Ventilator Respiratory Rate 14 Setting Ventilator Respiratory Rate 14 Setting Ventilator Respiratory Rate 14 Setting Ventilator Respiratory Rate 14 Setting Ventilator Respiratory Rate 14 Setting Ventilator Respiratory Rate 14 Setting Ventilator Respiratory Rate 14 Setting Ventilator Respiratory Rate 14 Setting Ventilator Respiratory Rate 14 Setting Ventilator Respiratory Rate 14 Setting Actual Respiratory Rate 17 Actual Respiratory Rate 18 Actual Respiratory Rate 21 Actual Respiratory Rate 20 Actual Respiratory Rate 19 Actual Respiratory Rate 18 Actual Respiratory Rate 21 Actual Respiratory Rate 19 Actual Respiratory Rate 21 Actual Respiratory Rate 17 Actual Respiratory Rate 18 Positive End Expiratory 5 Pressure Positive End Expiratory 5 Pressure Positive End Expiratory 5 Pressure Positive End Expiratory 5 Pressure Positive End Expiratory 5 Pressure Positive End Expiratory 5 Pressure Positive End Expiratory 5 Pressure Positive End Expiratory 5 Pressure Positive End Expiratory 5 Pressure Positive End Expiratory 5 Pressure Positive End Expiratory 5 Pressure Positive End Expiratory 5 Pressure Peak Inspiratory Airway 13 Pressure Peak Inspiratory Airway 20 Pressure Peak Inspiratory Airway 20 Pressure Peak Inspiratory Airway 22 Pressure Peak Inspiratory Airway 24 Pressure Peak Inspiratory Airway 25 Pressure Peak Inspiratory Airway 22 Pressure Peak Inspiratory Airway 24 Pressure Peak Inspiratory Airway 23 Pressure Peak Inspiratory Airway 21 Pressure Peak Inspiratory Airway 21 Pressure Results - Laboratory Findings CBC and BMP: 06/19/17 11:34 06/19/17 11:34 ABG ABG pH 7.46 pH Units (7.32-7.45) H 06/20/17 04:15 ABG pCO2 25 mmHg (35-45) L 06/20/17 04:15 ABG pO2 102 mmHg (85-104) 06/20/17 04:15 ABG O2 Saturation 98 % (95-98) 06/20/17 04:15 PT/INR, D-dimer PT 13.3 Seconds (9.4-12.1) H 06/19/17 12:33 Abnormal lab findings: Abnormal lab results RBC 2.98 M/mcL (4.19-5.50) L 06/19/17 11:34 Hgb 8.0 g/dL (12.9-16.9) L 06/19/17 11:34 Hct 27.9 % (37.5-50.1) L 06/19/17 11:34 MCH 26.8 pg (28.0-33.3) L 06/19/17 11:34 MCHC 28.7 g/dL (31.6-35.5) L 06/19/17 11:34 RDW 29.9 % (11.5-14.5) H 06/19/17 11:34 Band Neutrophils % 8.0 % (0-4) H 06/19/17 11:34 Neutrophils # 9.2 K/mcL (1.6-8.9) H 06/19/17 11:34 Lymphocytes # 0.2 K/mcL (0.6-4.6) L 06/19/17 11:34 Nucleated RBCs/100 WBC 2.0 /100 WBC (0) H 06/19/17 11:34 Polychromasia 3+ (Not Present) A 06/19/17 11:34 Hypochromasia Present (Not Present) A 06/19/17 11:34 Poikilocytosis 1+ (Not Present) A 06/19/17 11:34 Anisocytosis 3+ (Not Present) A 06/19/17 11:34 PT 13.3 Seconds (9.4-12.1) H 06/19/17 12:33 APTT 23.7 Seconds (26.0-36.0) L 06/19/17 12:33 ABG pH 7.46 pH Units (7.32-7.45) H 06/20/17 04:15 ABG pCO2 25 mmHg (35-45) L 06/20/17 04:15 ABG HCO3 17.8 mEQ/L (21-27) L 06/20/17 04:15 ABG Total CO2 18.6 mEq/L (20-26) L 06/20/17 04:15 ABG Base Excess -5.2 mEq/L (-2.0 to 3.0) L 06/20/17 04:15 Potassium 5.3 mEq/L (3.5-4.5) H 06/19/17 11:34 Carbon Dioxide 14 mEq/L (19-29) L 06/19/17 11:34 BUN 180 mg/dL (8-26) H 06/19/17 11:34 Creatinine 4.66 mg/dL (0.72-1.25) H 06/19/17 11:34 Est GFR ( Amer) 16 (> 60) L 06/19/17 11:34 Est GFR (Non-Af Amer) 13 (> 60) L 06/19/17 11:34 BUN/Creatinine Ratio 39 (6-26) H 06/19/17 11:34 Glucose 277 mg/dL (70-99) H 06/19/17 11:34 POC Glucose 276 (58-89) H 06/19/17 17:34 Calculated Osmolality 356 (280-300) H 06/19/17 11:34 Phosphorus 8.4 mg/dL (2.3-4.7) H 06/19/17 12:33 AST 221 Units/L (5-34) H 06/19/17 11:34 ALT 121 Units/L (0-55) H 06/19/17 11:34 Alkaline Phosphatase 423 Units/L (38-126) H 06/19/17 11:34 Albumin 2.9 g/dL (3.5-5.0) L 06/19/17 11:34 Albumin/Globulin Ratio 0.9 (1.1-2.2) L 06/19/17 11:34 Urine Color [place] (Yellow) A 06/19/17 11:34 Urine Clarity Turbid (Clear) A 06/19/17 11:34 Urine pH >=9.0 pH Units (5.0-8.0) H 06/19/17 11:34 Urine Protein >=300 mg/dL (Neg-Trace) H 06/19/17 11:34 Urine Blood Small (Negative) H 06/19/17 11:34 Ur Leukocyte Esterase Moderate (Negative) H 06/19/17 11:34 Urine Microscopic WBC 5-15 per hpf (0-3) H 06/19/17 11:34 Amorphous Sediment Many (Few) H 06/19/17 11:34 Urine Bacteria Many per hpf (None-Few) H 06/19/17 11:34 Urine Mucus Many (Few) H 06/19/17 11:34 Ur Culture Indicated? YES (NO) A 06/19/17 11:34 - Clinical Findings Intake & Output: Intake & Output 06/19/17 06/19/17 06/20/17 15:59 23:59 07:59 Intake Total 550 / 550 1225 / 1225 Output Total 2200 / 2200 250 / 250 800 / 800 Balance -2200 / 50 300 / 300 425 / 425 Weight 64 kg 63.911 kg Consult Discharge Plan - Plan Referrals: NONE,PCP [Primary Care Provider] - <Rayna Lovelace M - Last Filed: 06/20/17 12:58> Date of Encounter: 06/20/17 Objective PUL Vital signs: Last Vital Signs Temp 97.6 F 06/20/17 12:47 Pulse 110 06/20/17 12:00 Resp 20 06/20/17 12:00 BP 96/76 06/20/17 12:00 Pulse Ox 100 06/20/17 12:00 Ventilator Settings Ventilator Settings: Ventilator Settings, Last 8 Hours Ventilator Mode VC+ Ventilator Mode VC+ Ventilator Mode VC+ Ventilator Mode VC+ Ventilator Mode VC+ Ventilator Mode VC+ Ventilator Mode VC+ Ventilator Mode VC+ Ventilator Mode VC+ Ventilator Mode VC+ Ventilator Mode VC+ Ventilator Mode VC+ Ventilator Tidal Volume 550 Setting Ventilator Tidal Volume 550 Setting Ventilator Tidal Volume 550 Setting Ventilator Tidal Volume 550 Setting Ventilator Tidal Volume 550 Setting Ventilator Tidal Volume 550 Setting Ventilator Tidal Volume 550 Setting Ventilator Tidal Volume 550 Setting Ventilator Tidal Volume 550 Setting Ventilator Tidal Volume 550 Setting Ventilator Tidal Volume 550 Setting Ventilator Tidal Volume 550 Setting Ventilator Respiratory Rate 14 Setting Ventilator Respiratory Rate 14 Setting Ventilator Respiratory Rate 14 Setting Ventilator Respiratory Rate 14 Setting Ventilator Respiratory Rate 14 Setting Ventilator Respiratory Rate 14 Setting Ventilator Respiratory Rate 14 Setting Ventilator Respiratory Rate 14 Setting Ventilator Respiratory Rate 14 Setting Ventilator Respiratory Rate 14 Setting Ventilator Respiratory Rate 14 Setting Ventilator Respiratory Rate 14 Setting Actual Respiratory Rate 20 Actual Respiratory Rate 19 Actual Respiratory Rate 20 Actual Respiratory Rate 17 Actual Respiratory Rate 21 Actual Respiratory Rate 19 Actual Respiratory Rate 24 Actual Respiratory Rate 19 Actual Respiratory Rate 22 Actual Respiratory Rate 17 Actual Respiratory Rate 18 Actual Respiratory Rate 21 Positive End Expiratory 5 Pressure Positive End Expiratory 5 Pressure Positive End Expiratory 5 Pressure Positive End Expiratory 5 Pressure Positive End Expiratory 5 Pressure Positive End Expiratory 5 Pressure Positive End Expiratory 5 Pressure Positive End Expiratory 5 Pressure Positive End Expiratory 5 Pressure Positive End Expiratory 5 Pressure Positive End Expiratory 5 Pressure Positive End Expiratory 5 Pressure Peak Inspiratory Airway 11 Pressure Peak Inspiratory Airway 11 Pressure Peak Inspiratory Airway 12 Pressure Peak Inspiratory Airway 10 Pressure Peak Inspiratory Airway 11 Pressure Peak Inspiratory Airway 11 Pressure Peak Inspiratory Airway 13 Pressure Peak Inspiratory Airway 10 Pressure Peak Inspiratory Airway 13 Pressure Peak Inspiratory Airway 13 Pressure Peak Inspiratory Airway 20 Pressure Peak Inspiratory Airway 20 Pressure Results - Laboratory Findings CBC and BMP: 06/19/17 11:34 06/19/17 11:34 ABG ABG pH 7.46 pH Units (7.32-7.45) H 08/02/17 04:15 ABG pCO2 25 mmHg (35-45) L 06/20/17 04:15 ABG pO2 102 mmHg (85-104) 06/20/17 04:15 ABG O2 Saturation 98 % (95-98) 06/20/17 04:15 PT/INR, D-dimer PT 13.3 Seconds (9.4-12.1) H 06/19/17 12:33 Abnormal lab findings: Abnormal lab results RBC 2.98 M/mcL (4.19-5.50) L 06/19/17 11:34 Hgb 8.0 g/dL (12.9-16.9) L 06/19/17 11:34 Hct 27.9 % (37.5-50.1) L 06/19/17 11:34 MCH 26.8 pg (28.0-33.3) L 06/19/17 11:34 MCHC 28.7 g/dL (31.6-35.5) L 06/19/17 11:34 RDW 29.9 % (11.5-14.5) H 06/19/17 11:34 Band Neutrophils % 8.0 % (0-4) H 06/19/17 11:34 Neutrophils # 9.2 K/mcL (1.6-8.9) H 06/19/17 11:34 Lymphocytes # 0.2 K/mcL (0.6-4.6) L 06/19/17 11:34 Nucleated RBCs/100 WBC 2.0 /100 WBC (0) H 06/19/17 11:34 Polychromasia 3+ (Not Present) A 06/19/17 11:34 Hypochromasia Present (Not Present) A 06/19/17 11:34 Poikilocytosis 1+ (Not Present) A 06/19/17 11:34 Anisocytosis 3+ (Not Present) A 06/19/17 11:34 PT 13.3 Seconds (9.4-12.1) H 06/19/17 12:33 APTT 23.7 Seconds (26.0-36.0) L 06/19/17 12:33 ABG pH 7.46 pH Units (7.32-7.45) H 06/20/17 04:15 ABG pCO2 25 mmHg (35-45) L 06/20/17 04:15 ABG HCO3 17.8 mEQ/L (21-27) L 06/20/17 04:15 ABG Total CO2 18.6 mEq/L (20-26) L 06/20/17 04:15 ABG Base Excess -5.2 mEq/L (-2.0 to 3.0) L 06/20/17 04:15 Potassium 5.3 mEq/L (3.5-4.5) H 06/19/17 11:34 Carbon Dioxide 14 mEq/L (19-29) L 06/19/17 11:34 BUN 180 mg/dL (8-26) H 06/19/17 11:34 Creatinine 4.66 mg/dL (0.72-1.25) H 06/19/17 11:34 Est GFR ( Amer) 16 (> 60) L 06/19/17 11:34 Est GFR (Non-Af Amer) 13 (> 60) L 06/19/17 11:34 BUN/Creatinine Ratio 39 (6-26) H 06/19/17 11:34 Glucose 277 mg/dL (70-99) H 06/19/17 11:34 POC Glucose 276 (58-89) H 06/19/17 17:34 Calculated Osmolality 356 (280-300) H 06/19/17 11:34 Phosphorus 8.4 mg/dL (2.3-4.7) H 06/19/17 12:33 AST 221 Units/L (5-34) H 06/19/17 11:34 ALT 121 Units/L (0-55) H 06/19/17 11:34 Alkaline Phosphatase 423 Units/L (38-126) H 06/19/17 11:34 Albumin 2.9 g/dL (3.5-5.0) L 06/19/17 11:34 Albumin/Globulin Ratio 0.9 (1.1-2.2) L 06/19/17 11:34 Urine Color [place] (Yellow) A 06/19/17 11:34 Urine Clarity Turbid (Clear) A 06/19/17 11:34 Urine pH >=9.0 pH Units (5.0-8.0) H 06/19/17 11:34 Urine Protein >=300 mg/dL (Neg-Trace) H 06/19/17 11:34 Urine Blood Small (Negative) H 06/19/17 11:34 Ur Leukocyte Esterase Moderate (Negative) H 06/19/17 11:34 Urine Microscopic WBC 5-15 per hpf (0-3) H 06/19/17 11:34 Amorphous Sediment Many (Few) H 06/19/17 11:34 Urine Bacteria Many per hpf (None-Few) H 06/19/17 11:34 Urine Mucus Many (Few) H 06/19/17 11:34 Ur Culture Indicated? YES (NO) A 06/19/17 11:34 - Clinical Findings Intake & Output: Intake & Output 06/19/17 06/20/17 06/20/17 23:59 07:59 15:59 Intake Total 550 / 550 1225 / 1225 Output Total 250 / 250 1200 / 1200 400 / 400 Balance 300 / 300 25 / 25 -400 / -400 Weight 64 kg 63.911 kg - Attending Attestation I examined this patient and my medical decision-making was reviewed with the Resident Physician. I agree with the documented findings, disposition and treatment plan as described except to the extent set forth below. Patient seen and examined. Labs, radiology, chart personally reviewed. Agree with resident's history and physical, assessment, plan with following comments: Patient with extremely poor prognosis remained on the ventilator and awaiting for the family member to arrive for compassionate extubation and palliative care consult at. Patient responded to painful stimuli, however he seems to be comfortable. We will continue supportive measures and comfort and wait for the family.
[2017-06-20] MEDS: Chlorhexidine Rinse 15 ML MOUTHWASH MM SCH (08:01)
--- NOTE | 2017-06-20 11:10 | Palliative - Consult Note ---
Date of Encounter: 06/20/17 Time of Encounter: 10:30 - Assessment and Plan (1) Goals of care, counseling/discussion Current Visit: Yes Status: Acute Assessment and plan: Patient intubated and mechanically ventilated. Mode A/C, FiO2 40%. Discussion with Yvette and son Chaparro. Patient with DNRCC-A, DNI in place. Patient desires comfort care and we will plan for compassionate extubation with transition to comfort care. Yvette doesn't know when other family members will arrive. I discussed transition of care and patient is a DNRCC- Comfort Care. Plan for extubation once all family arrives. (2) Esophageal cancer Current Visit: Yes Status: Acute Assessment and plan: Patient desires comfort care Palliative-CN HPI - Data of Consult Patient: new to practice Consult date: 06/20/17 Requesting Physician: Rayna Lovelace MD Primary Care Provider: PCP NONE - Consult Narrative Palliative Care/Comfort Measures: Palliative care Reason for consult: Goals of Care History of present illness: Mr. Wakefield is a 61 year old male with past medical history of esophageal cancer with metastasis to the brain and multiple organs. The medical chart, labs and diagnostics have been reviewed. The patient was at [facility] and became unresponsive and obtunded. He was transferred to the ER and intubated and mechanically ventilated and placed on norepinephrine gtt. The patient had a DNRCC-A/DNI in place as this was discussed once the family arrived. Patients Yvette and son Chaparro are at the patients bedside upon this consult. This palliative care consult is for goals of care discussion. The family desires to have a compassionate withdrawal of life support once the patients sisters arrive from [place]. CC: Rayna Lovelace MD Past Med Surg Social Fam HX - Past Medical History Medical history: cancer, diabetes, other Psychiatric history: no psych history - Social History Smoking Status: Never smoker Smokeless Tobacco Status: No Alcohol use: none Drug use: none - Family History Mother History Unknown: Yes Medications and Allergies Glycopyrrolate [Robinul] 1 mg PO TID #90 tablet 05/01/17 [Rx] Tamsulosin [Flomax] 0.4 mg PO DAILY 05/01/17 [History] Capecitabine [Xeloda] 1,000 mg PO BID #120 tablet 05/15/17 [Rx] Finasteride [Proscar] 5 mg PO DAILY 05/15/17 [History] Dexamethasone [Decadron] 4 mg PO Q8HR #60 tab 05/23/17 [Rx] metFORMIN [Glucophage] 500 mg PO BID #60 tablet 05/23/17 [Rx] Acetaminophen [Tylenol] 500 mg PO Q6HR PRN #0 06/04/17 [Rx] Docusate [Colace] 100 mg PO BID PRN 06/04/17 [Rx] Famotidine [Pepcid] 20 mg PO BID tab 06/04/17 [Rx] Ferrous Sulfate 325 mg PO BIDWM tab 06/04/17 [Rx] HYDROcodone/Acet 5/325 mg [[place] 5-325 mg] 1 tab PO Q4HR PRN #20 tab 06/04/17 [ Rx] Allergies Penicillins [PCN] Adverse Reaction (Verified 06/19/17 11:29) Hives ROS unobtainable: due to endotracheal tube - Constitutional Constitutional ROS PAL: fatigue - EENT Eyes: requires corrective lenses - Musculoskeletal Musculoskeletal ROS IM: muscle weakness - Neurological Neurological ROS: weakness Palliative Care-Exam - Constitutional Vitals: Temp Pulse Resp BP Pulse Ox 98.4 F 102 19 88/71 100 06/20/17 07:53 06/20/17 09:00 06/20/17 09:40 06/20/17 09:40 06/20/17 09:40 General appearance: Present: no acute distress - Head Head Exam: Present: atraumatic, normal inspection, normocephalic - Eye Eye exam: Present: PERRL - ENT ENT exam: Present: mucous membranes moist - Neck Neck exam: Present: normal inspection - Respiratory Respiratory exam: Present: wheezes - Expanded Respiratory Exam Location: decreased breath sounds: Left, Right, Lower - Cardiovascular Cardiovascular exam: Present: RRR, +S1, +S2, tachycardia - Expanded Cardiovascular Exam Peripheral pulses: 1+: Femoral (L) PM, Femoral (R) PM, Posterior Tibialis (L), Posterior Tibialis (R), 2+: Carotid (L) PM, Carotid (R) PM, Radial (L), Radial ( R), Dorsalis Pedis (L) PM, Dorsalis Pedis (R) PM - GI/Abdominal Exam GI/Abdominal exam: Present: normal bowel sounds, soft - Rectal Rectal Exam: Present: deferred - Catheter Type: Urethral (العراقي) Additional comments: clear yellow urine - Neurological Exam Neurological exam: Present: altered (Propofol) - Psychiatric Psychiatric exam: Present: flat affect - Skin Skin exam: Present: pallor, warm Internal Medicine - CN: Reslt - Labs CBC & Chem 7: 06/19/17 11:34 06/19/17 11:34 - ABG Interpretation ABG results: ABG ABG pH 7.46 pH Units (7.32-7.45) H 06/20/17 04:15 ABG pCO2 25 mmHg (35-45) L 06/20/17 04:15 ABG pO2 102 mmHg (85-104) 06/20/17 04:15 ABG O2 Saturation 98 % (95-98) 06/20/17 04:15 PT/INR, D-dimer PT 13.3 Seconds (9.4-12.1) H 06/19/17 12:33 Consult Discharge Plan - Plan Referrals: NONE,PCP [Primary Care Provider] - Palliative Quality Palliative Quality: Screen for Code Status: Yes, Screen for Goals of Care: Yes, Screen for Pain: Yes, If Pain Regimen Started, Initiate Bowel Regimen: Yes, Screen for Nausea/Vomitting: Yes Code Status: 06/19/17 17:22 Resuscitation Status: Active [RES] Routine Comment: Resuscitation Status: DNR-Comfort Care
[2017-06-20] MEDS ORDERED: Ondansetron 4 MG/2 ML VIAL IVP PRN ×2 (13:04→17:15)
[2017-06-20] MEDS ORDERED: Atropine Sulfate 1% 40 DROP/2 ML BOTTLE SL PRN (13:05)
[2017-06-20] MEDS ORDERED: *HR* LORazepam 2 MG/ML VIAL IVP PRN (13:06)
[2017-06-20] MEDS ORDERED: Ipratropium/Albuterol Neb 3 ML IH PRN ×2 (13:10→17:15)
[2017-06-20] MEDS ORDERED: *HR* Morphine 2 MG/ML SYRINGE IVP PRN (13:10)
--- NOTE | 2017-06-20 13:21 | Event Note ---
Date of Encounter: 06/20/17 Time of Encounter: 12:45 Called to ICU, all family members have arrived and family desires to have compassionate extubation performed. Patients desires are for comfort care. New family members included, patients sister, [id number], aunt and mother. I discussed process of withdrawal of intubation tube and mechanical ventilator. Audio Recording Engineer Ronal Fuentes arrived. Conducted bedside prayer and provided family support. RTS arrived and patient ET tube and mechanical ventilator withdrawn at 1255. Patient vitals at time of DC 98.4, 113, 110/47, sats 100%. DC'd Levophed , Bicarb drip, and Propofol. Family desires to stop all antibiotics and provide only comfort medications. Patient terminal diagnosis of metastatic esophageal cancer. If patient condition and vitals remain stable the patient can transfer to palliative care. Will transition to inpatient hospice tomorrow if patient survives. Family educated on POC.
--- NOTE | 2017-06-20 14:08 | Event Note ---
Date of Encounter: 06/20/17 Time of Encounter: 14:03 Discussed with Yvette bereavement plans if any. She request [facility],[address] [place] [address] . Yvette Wakefield is patients and her contact # [phone].
--- NOTE | 2017-06-20 15:06 | Event Note ---
Date of Encounter: 06/20/17 Time of Encounter: 14:58 Patient has been extubated. Patient has been monitored for approximately 2 hours. Vitals remained stable at this time, however, patient does have labored breathing. Transfer orders to palliative care floor have been finalized. Patient remains DNR/DNR/comfort care only.
[2017-06-20] MEDS: *HR* Morphine 2 MG/ML SYRINGE IVP PRN ×3 (17:23→23:01)
[2017-06-20] MEDS ORDERED: Famotidine 20 MG/2 ML VIAL IVP SCH (18:00)
[2017-06-20] MEDS: Atropine Sulfate 1% 40 DROP/2 ML BOTTLE SL PRN (21:13)
[2017-06-20] MEDS: *HR* LORazepam 2 MG/ML VIAL IVP PRN (23:01)
[2017-06-21] MEDS: Atropine Sulfate 1% 40 DROP/2 ML BOTTLE SL PRN (04:39)
[2017-06-21] MEDS: *HR* Morphine 2 MG/ML SYRINGE IVP PRN ×4 (07:14→19:32)
[2017-06-21] MEDS: Lacri-Lube 3.5 GM TUBE BOTH EYES SCH (07:19)
--- NOTE | 2017-06-21 10:23 | Palliative Progress Note ---
Date of Encounter: 06/21/17 Time of Encounter: 10:21 - Assessment and plan (1) Airway clearance impairment Current Visit: Yes Status: Acute Assessment and plan: Mr. Wakefield is demonstrating terminal secretions. He does have atropine drops as needed. Discussed plan of care with family. (2) Dyspnea Current Visit: Yes Status: Acute Assessment and plan: Morphine PRN for increased work of breathing-he has used 4 doses in the past 24 hours. Use non-pharmacological measures including oxygen (not to exceed current rate). Position for comfort. Qualifiers: Dyspnea type: unspecified Qualified Code(s): R06.00 - Dyspnea, unspecified (3) Agitation Current Visit: Yes Status: Acute Assessment and plan: Lorazepam as needed. Spiritual support provided by hospital silver lap machine tender. Personal program rep also with a presence. (4) Goals of care, counseling/discussion Current Visit: Yes Status: Acute Assessment and plan: Mr. Wakefield is currently unresponsive and at end of life. Goal is comfort care. Given his current physical exam and rapid decline in health, he is not expected to survive long. Family educated on end of life care and plan of care. Discussed case with hospitalist. The palliative care team will continue to follow. 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 Wakefield is lying in bed, unresponsive with family at bedside. - Constitutional Vitals: Abnormal lab results RBC 2.98 M/mcL (4.19-5.50) L 06/19/17 11:34 Hgb 8.0 g/dL (12.9-16.9) L 06/19/17 11:34 Hct 27.9 % (37.5-50.1) L 06/19/17 11:34 MCH 26.8 pg (28.0-33.3) L 06/19/17 11:34 MCHC 28.7 g/dL (31.6-35.5) L 06/19/17 11:34 RDW 29.9 % (11.5-14.5) H 06/19/17 11:34 Band Neutrophils % 8.0 % (0-4) H 06/19/17 11:34 Neutrophils # 9.2 K/mcL (1.6-8.9) H 06/19/17 11:34 Lymphocytes # 0.2 K/mcL (0.6-4.6) L 06/19/17 11:34 Nucleated RBCs/100 WBC 2.0 /100 WBC (0) H 06/19/17 11:34 Polychromasia 3+ (Not Present) A 06/19/17 11:34 Hypochromasia Present (Not Present) A 06/19/17 11:34 Poikilocytosis 1+ (Not Present) A 06/19/17 11:34 Anisocytosis 3+ (Not Present) A 06/19/17 11:34 PT 13.3 Seconds (9.4-12.1) H 06/19/17 12:33 APTT 23.7 Seconds (26.0-36.0) L 06/19/17 12:33 ABG pH 7.46 pH Units (7.32-7.45) H 06/20/17 04:15 ABG pCO2 25 mmHg (35-45) L 06/20/17 04:15 ABG HCO3 17.8 mEQ/L (21-27) L 06/20/17 04:15 ABG Total CO2 18.6 mEq/L (20-26) L 06/20/17 04:15 ABG Base Excess -5.2 mEq/L (-2.0 to 3.0) L 06/20/17 04:15 Potassium 5.3 mEq/L (3.5-4.5) H 06/19/17 11:34 Carbon Dioxide 14 mEq/L (19-29) L 06/19/17 11:34 BUN 180 mg/dL (8-26) H 06/19/17 11:34 Creatinine 4.66 mg/dL (0.72-1.25) H 06/19/17 11:34 Est GFR ( Amer) 16 (> 60) L 06/19/17 11:34 Est GFR (Non-Af Amer) 13 (> 60) L 06/19/17 11:34 BUN/Creatinine Ratio 39 (6-26) H 06/19/17 11:34 Glucose 277 mg/dL (70-99) H 06/19/17 11:34 POC Glucose 276 (58-89) H 06/19/17 17:34 Calculated Osmolality 356 (280-300) H 06/19/17 11:34 Phosphorus 8.4 mg/dL (2.3-4.7) H 06/19/17 12:33 AST 221 Units/L (5-34) H 06/19/17 11:34 ALT 121 Units/L (0-55) H 06/19/17 11:34 Alkaline Phosphatase 423 Units/L (38-126) H 06/19/17 11:34 Albumin 2.9 g/dL (3.5-5.0) L 06/19/17 11:34 Albumin/Globulin Ratio 0.9 (1.1-2.2) L 06/19/17 11:34 Urine Color [place] (Yellow) A 06/19/17 11:34 Urine Clarity Turbid (Clear) A 06/19/17 11:34 Urine pH >=9.0 pH Units (5.0-8.0) H 06/19/17 11:34 Urine Protein >=300 mg/dL (Neg-Trace) H 06/19/17 11:34 Urine Blood Small (Negative) H 06/19/17 11:34 Ur Leukocyte Esterase Moderate (Negative) H 06/19/17 11:34 Urine Microscopic WBC 5-15 per hpf (0-3) H 06/19/17 11:34 Amorphous Sediment Many (Few) H 06/19/17 11:34 Urine Bacteria Many per hpf (None-Few) H 06/19/17 11:34 Urine Mucus Many (Few) H 06/19/17 11:34 Ur Culture Indicated? YES (NO) A 06/19/17 11:34 General appearance: Present: no acute distress Exam: 61 year old male, at end of life, unresponsive, family at bedside. - Eye Eye exam: Present: PERRL (sluggish) - ENT ENT exam: Present: mucous membranes dry - Respiratory Respiratory exam: Present: rhonchi. Absent: accessory muscle use, respiratory distress, tachypnea Additional comments: audible rhonchi, periods of apnea noted - Cardiovascular Cardiovascular exam: Present: RRR, tachycardia (rate 110) - GI/Abdominal GI/Abdominal exam: Present: hypoactive bowel sounds, soft Additional comments: abdomen scaphoid - Extremities Exam Extremities exam: Absent: normal inspection - Neurological Exam Neurological exam: Absent: alert - Psychiatric Psychiatric exam: Absent: agitated, anxious - Skin Skin exam: Present: mottled (bilateral knees) Palliative Quality Palliative Quality: Screen for Code Status: Yes, Screen for Goals of Care: Yes, Screen for Pain: Yes, If Pain Regimen Started, Initiate Bowel Regimen: Yes, Screen for Nausea/Vomitting: Yes Code Status: 06/19/17 17:22 Resuscitation Status: Active [RES] Routine Comment: Resuscitation Status: DNR-Comfort Care - Labs CBC & Chem 7: 06/19/17 11:34 06/19/17 11:34 - ABG Interpretation ABG results: ABG ABG pH 7.46 pH Units (7.32-7.45) H 06/20/17 04:15 ABG pCO2 25 mmHg (35-45) L 06/20/17 04:15 ABG pO2 102 mmHg (85-104) 06/20/17 04:15 ABG O2 Saturation 98 % (95-98) 06/20/17 04:15 PT/INR, D-dimer PT 13.3 Seconds (9.4-12.1) H 06/19/17 12:33 Consult Discharge Plan - Plan Referrals: NONE,PCP [Primary Care Provider] -
--- NOTE | 2017-06-21 16:00 | Internal Med Progress Note ---
<Milo Whelan - Last Filed: 06/21/17 15:57> Date of Encounter: 06/21/17 Time of Encounter: 15:58 - Assessment and plan (1) Primary adenocarcinoma of esophagus with metastasis Current Visit: No Status: Chronic Assessment and plan: Palliatiave care. ct bicarb for acidosis. (2) Acute respiratory failure Current Visit: Yes Status: Acute Assessment and plan: Terminally extubated. comfort care only Qualifiers: Respiratory failure complication: hypoxia Qualified Code(s): J96.01 - Acute respiratory failure with hypoxia - Subjective Interval history: 61 year old male with hx of brain and multiple organ mets. Family and patient are comfortable and only looking for palliative care. - Constitutional Vitals: Temp Pulse Resp BP Pulse Ox 97.6 F 110 20 110/77 100 06/20/17 12:47 06/20/17 12:00 06/20/17 12:00 06/20/17 12:55 06/20/17 12:55 General appearance: Present: no acute distress - Head Head exam: Present: atraumatic - Respiratory Respiratory exam: Present: accessory muscle use - Cardiovascular Cardiovascular exam: Present: irregular rhythm - GI/Abdominal GI/Abdominal exam: Present: normal bowel sounds, soft, no peritoneal signs. Absent: distended, tenderness Internal Medicine: Result - Labs CBC & Chem 7: 06/19/17 11:34 06/19/17 11:34 - ABG Interpretation ABG results: ABG ABG pH 7.46 pH Units (7.32-7.45) H 06/20/17 04:15 ABG pCO2 25 mmHg (35-45) L 06/20/17 04:15 ABG pO2 102 mmHg (85-104) 06/20/17 04:15 ABG O2 Saturation 98 % (95-98) 06/20/17 04:15 PT/INR, D-dimer PT 13.3 Seconds (9.4-12.1) H 06/19/17 12:33 Consult Discharge Plan - Plan Referrals: NONE,PCP [Primary Care Provider] - <Nicolás Leary - Last Filed: 06/21/17 16:23> Date of Encounter: 06/21/17 - Constitutional Vitals: Temp Pulse Resp BP Pulse Ox 97.6 F 110 20 110/77 100 06/20/17 12:47 06/20/17 12:00 06/20/17 12:00 06/20/17 12:55 06/20/17 12:55 Internal Medicine: Result - Labs CBC & Chem 7: 06/19/17 11:34 06/19/17 11:34 - ABG Interpretation ABG results: ABG ABG pH 7.46 pH Units (7.32-7.45) H 06/20/17 04:15 ABG pCO2 25 mmHg (35-45) L 06/20/17 04:15 ABG pO2 102 mmHg (85-104) 06/20/17 04:15 ABG O2 Saturation 98 % (95-98) 06/20/17 04:15 PT/INR, D-dimer PT 13.3 Seconds (9.4-12.1) H 06/19/17 12:33 - Attending Attestation I examined this patient and my medical decision-making was reviewed with the Resident Physician on 06/21/17. I agree with the documented findings, disposition and treatment plan as described except to the extent set forth below. 61 M with anoxic encephaopathy on comfort care patient is actively dying Family provided with supportive care
[2017-06-22] MEDS: *HR* Morphine 2 MG/ML SYRINGE IVP PRN ×2 (01:11→10:27)
[2017-06-22] MEDS: *HR* LORazepam 2 MG/ML VIAL IVP PRN (01:11)
[2017-06-22] MEDS ORDERED: Aminoglycoside Consult 1 EACH MC ONE (09:01)
[2017-06-22] MEDS ORDERED: *HR* Etomidate 20 MG/10 ML AMPUL IVP ONE (09:36)
[2017-06-22] MEDS ORDERED: *HR* EPINEPHrine 1 MG/10 ML SYRINGE INTRATRACH ONE (09:41)
[2017-06-22] MEDS ORDERED: *HR* Norepinephrine 4 MG/4 ML VIAL IVC ONE (09:41)
--- NOTE | 2017-06-22 09:54 | Palliative Progress Note ---
Date of Encounter: 06/22/17 Time of Encounter: 09:52 - Assessment and plan (1) Airway clearance impairment Current Visit: Yes Status: Acute Assessment and plan: Mr. Wakefield is demonstrating terminal secretions. He does have atropine drops as needed. Discussed plan of care with family. (2) Dyspnea Current Visit: Yes Status: Acute Assessment and plan: Morphine PRN for increased work of breathing-he has used 4 doses in the past 24 hours. Nasal cannula discontinued as patient was agitated. Position for comfort. Qualifiers: Dyspnea type: unspecified Qualified Code(s): R06.00 - Dyspnea, unspecified (3) Agitation Current Visit: Yes Status: Acute Assessment and plan: Lorazepam as needed, one dose last night. Spiritual support provided by hospital trench pipe layer helper. Personal parking enforcement specialist also with a presence. (4) Goals of care, counseling/discussion Current Visit: Yes Status: Acute Assessment and plan: Mr. Wakefield is currently unresponsive and at end of life. His respirations are irregular with 30-40 second periods of apnea. Goal is comfort care. Given his current physical exam and rapid decline in health, he is not expected to survive long. Family educated on end of life care and plan of care. Discussed case with hospitalist. The palliative care team will continue to follow. 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 Wakefield is lying in bed, unresponsive with family at bedside. Periods of apnea lasting up to 30-40 seconds. - Constitutional Vitals: Abnormal lab results RBC 2.98 M/mcL (4.19-5.50) L 06/19/17 11:34 Hgb 8.0 g/dL (12.9-16.9) L 06/19/17 11:34 Hct 27.9 % (37.5-50.1) L 06/19/17 11:34 MCH 26.8 pg (28.0-33.3) L 06/19/17 11:34 MCHC 28.7 g/dL (31.6-35.5) L 06/19/17 11:34 RDW 29.9 % (11.5-14.5) H 06/19/17 11:34 Band Neutrophils % 8.0 % (0-4) H 06/19/17 11:34 Neutrophils # 9.2 K/mcL (1.6-8.9) H 06/19/17 11:34 Lymphocytes # 0.2 K/mcL (0.6-4.6) L 06/19/17 11:34 Nucleated RBCs/100 WBC 2.0 /100 WBC (0) H 06/19/17 11:34 Polychromasia 3+ (Not Present) A 06/19/17 11:34 Hypochromasia Present (Not Present) A 06/19/17 11:34 Poikilocytosis 1+ (Not Present) A 06/19/17 11:34 Anisocytosis 3+ (Not Present) A 06/19/17 11:34 PT 13.3 Seconds (9.4-12.1) H 06/19/17 12:33 APTT 23.7 Seconds (26.0-36.0) L 06/19/17 12:33 ABG pH 7.46 pH Units (7.32-7.45) H 06/20/17 04:15 ABG pCO2 25 mmHg (35-45) L 06/20/17 04:15 ABG HCO3 17.8 mEQ/L (21-27) L 06/20/17 04:15 ABG Total CO2 18.6 mEq/L (20-26) L 06/20/17 04:15 ABG Base Excess -5.2 mEq/L (-2.0 to 3.0) L 06/20/17 04:15 Potassium 5.3 mEq/L (3.5-4.5) H 06/19/17 11:34 Carbon Dioxide 14 mEq/L (19-29) L 06/19/17 11:34 BUN 180 mg/dL (8-26) H 06/19/17 11:34 Creatinine 4.66 mg/dL (0.72-1.25) H 06/19/17 11:34 Est GFR ( Amer) 16 (> 60) L 06/19/17 11:34 Est GFR (Non-Af Amer) 13 (> 60) L 06/19/17 11:34 BUN/Creatinine Ratio 39 (6-26) H 06/19/17 11:34 Glucose 277 mg/dL (70-99) H 06/19/17 11:34 POC Glucose 276 (58-89) H 06/19/17 17:34 Calculated Osmolality 356 (280-300) H 06/19/17 11:34 Phosphorus 8.4 mg/dL (2.3-4.7) H 06/19/17 12:33 AST 221 Units/L (5-34) H 06/19/17 11:34 ALT 121 Units/L (0-55) H 06/19/17 11:34 Alkaline Phosphatase 423 Units/L (38-126) H 06/19/17 11:34 Albumin 2.9 g/dL (3.5-5.0) L 06/19/17 11:34 Albumin/Globulin Ratio 0.9 (1.1-2.2) L 06/19/17 11:34 Urine Color [place] (Yellow) A 06/19/17 11:34 Urine Clarity Turbid (Clear) A 06/19/17 11:34 Urine pH >=9.0 pH Units (5.0-8.0) H 06/19/17 11:34 Urine Protein >=300 mg/dL (Neg-Trace) H 06/19/17 11:34 Urine Blood Small (Negative) H 06/19/17 11:34 Ur Leukocyte Esterase Moderate (Negative) H 06/19/17 11:34 Urine Microscopic WBC 5-15 per hpf (0-3) H 06/19/17 11:34 Amorphous Sediment Many (Few) H 06/19/17 11:34 Urine Bacteria Many per hpf (None-Few) H 06/19/17 11:34 Urine Mucus Many (Few) H 06/19/17 11:34 Ur Culture Indicated? YES (NO) A 06/19/17 11:34 Exam: 61 year old male, cachectic, at end of life, respirations shallow with apenic periods. - Eye Eye exam: Present: PERRL (sluggish) - Respiratory Respiratory exam: Absent: accessory muscle use, respiratory distress, tachypnea Additional comments: shallow, audible rhonchi, periods of apnea lasting 30-40 seconds - Cardiovascular Cardiovascular exam: Present: irregular rhythm (rate 100) - Expanded Cardiovascular Exam Peripheral pulses: 1+: Radial (L) (thready), Radial (R) (thready) - GI/Abdominal GI/Abdominal exam: Absent: firm, guarding - Additional comments: ruano catheter in place with yellow urine output - Extremities Exam Extremities exam: Present: normal inspection. Absent: pedal edema (resolved) - Neurological Exam Neurological exam: Absent: alert - Psychiatric Psychiatric exam: Absent: agitated, anxious - Skin Skin exam: Present: mottled (bilateral knees) Palliative Quality Palliative Quality: Screen for Code Status: Yes, Screen for Goals of Care: Yes, Screen for Pain: Yes, If Pain Regimen Started, Initiate Bowel Regimen: Yes, Screen for Nausea/Vomitting: Yes Code Status: 06/19/17 17:22 Resuscitation Status: Active [RES] Routine Comment: Resuscitation Status: DNR-Comfort Care - Labs CBC & Chem 7: 06/19/17 11:34 06/19/17 11:34 - ABG Interpretation ABG results: ABG ABG pH 7.46 pH Units (7.32-7.45) H 06/20/17 04:15 ABG pCO2 25 mmHg (35-45) L 06/20/17 04:15 ABG pO2 102 mmHg (85-104) 06/20/17 04:15 ABG O2 Saturation 98 % (95-98) 06/20/17 04:15 PT/INR, D-dimer PT 13.3 Seconds (9.4-12.1) H 06/19/17 12:33 Consult Discharge Plan - Plan Referrals: NONE,PCP [Primary Care Provider] -
--- NOTE | 2017-06-22 15:50 | Internal Med Progress Note ---
<Milo Whelan - Last Filed: 06/22/17 15:48> Date of Encounter: 06/22/17 Time of Encounter: 15:48 - Assessment and plan (1) Primary adenocarcinoma of esophagus with metastasis Current Visit: No Status: Chronic Assessment and plan: Palliatiave care. (2) Acute respiratory failure Current Visit: Yes Status: Acute Assessment and plan: Terminally extubated. comfort care only Qualifiers: Respiratory failure complication: hypoxia Qualified Code(s): J96.01 - Acute respiratory failure with hypoxia - Subjective Interval history: 61 year old male with hx of brain and multiple organ mets. Family and patient are comfortable and only looking for palliative care. Family reports that patients breathing has slowed significantly since yesterday. - Constitutional Vitals: Temp Pulse Resp BP Pulse Ox 97.6 F 110 20 110/77 100 06/20/17 12:47 06/20/17 12:00 06/20/17 12:00 06/20/17 12:55 06/20/17 12:55 General appearance: Present: no acute distress - Head Head exam: Present: atraumatic, normocephalic - Respiratory Respiratory exam: Present: accessory muscle use, decreased breath sounds - Cardiovascular Cardiovascular exam: Present: distant heart sounds - Psychiatric Additional comments: unresponsive Internal Medicine: Result - Labs CBC & Chem 7: 06/19/17 11:34 06/19/17 11:34 - ABG Interpretation ABG results: ABG ABG pH 7.46 pH Units (7.32-7.45) H 06/20/17 04:15 ABG pCO2 25 mmHg (35-45) L 06/20/17 04:15 ABG pO2 102 mmHg (85-104) 06/20/17 04:15 ABG O2 Saturation 98 % (95-98) 06/20/17 04:15 PT/INR, D-dimer PT 13.3 Seconds (9.4-12.1) H 06/19/17 12:33 Consult Discharge Plan - Plan Referrals: NONE,PCP [Primary Care Provider] - <Adriano Jimenes - Last Filed: 06/22/17 18:41> Date of Encounter: 06/22/17 - Assessment and plan (1) Metastasis from esophageal cancer Current Visit: Yes Status: Chronic - Constitutional Vitals: Temp Pulse Resp BP Pulse Ox 97.6 F 110 20 110/77 100 06/20/17 12:47 06/20/17 12:00 06/20/17 12:00 06/20/17 12:55 06/20/17 12:55 Internal Medicine: Result - Labs CBC & Chem 7: 06/19/17 11:34 06/19/17 11:34 - ABG Interpretation ABG results: ABG ABG pH 7.46 pH Units (7.32-7.45) H 06/20/17 04:15 ABG pCO2 25 mmHg (35-45) L 06/20/17 04:15 ABG pO2 102 mmHg (85-104) 06/20/17 04:15 ABG O2 Saturation 98 % (95-98) 06/20/17 04:15 PT/INR, D-dimer PT 13.3 Seconds (9.4-12.1) H 06/19/17 12:33 - Attending Attestation I examined this patient and my medical decision-making was reviewed with the Resident Physician on 06/22/17. I agree with the documented findings, disposition and treatment plan as described except to the extent set forth below. Mr. Vick is currently actively dying. He appears to be comfortable and family is at bedside. Exam Unresponsive. Comfortable Respirations irregular. I/P 1. Metastatic adenocarcinoma of esophagus - comfort care. Actively dying at this time.
[2017-06-23] MEDS: *HR* Morphine 2 MG/ML SYRINGE IVP PRN ×2 (05:11→18:37)
--- NOTE | 2017-06-23 10:11 | Palliative Progress Note ---
Date of Encounter: 06/23/17 Time of Encounter: 10:09 - Assessment and plan (1) Airway clearance impairment Current Visit: Yes Status: Acute Assessment and plan: Mr. Wakefield is demonstrating terminal secretions. He does have atropine drops as needed. Discussed plan of care with family. (2) Dyspnea Current Visit: Yes Status: Acute Assessment and plan: Morphine PRN for increased work of breathing-he has used 2 doses in the past 24 hours. Position for comfort. Qualifiers: Dyspnea type: unspecified Qualified Code(s): R06.00 - Dyspnea, unspecified (3) Agitation Current Visit: Yes Status: Acute Assessment and plan: Lorazepam as needed, one dose last night. Spiritual support provided by hospital director of compensation. Personal admitting interviewer also with a presence. (4) Goals of care, counseling/discussion Current Visit: Yes Status: Acute Assessment and plan: Mr. Wakefield is currently unresponsive and at end of life. His respirations are shallow and irregular with 20-30 second periods of apnea. Goal is comfort care. Given his current physical exam and rapid decline in health, he is not expected to survive long. Family educated on end of life care and plan of care. Discussed case with hospitalist. The palliative care team will continue to follow. (5) Metastasis from esophageal cancer Current Visit: Yes Status: Chronic - Time Spent With Patient Total time spent is greater than 50% in coordination of care (as documented) at patient's floor/unit and/or counseling patient: - Subjective Interval history: Mr. Wakefield is lying in bed, unresponsive with family at bedside. Periods of apnea lasting up to 30-40 seconds. Respiratory rate 6, heart rate 90, terminal fever noted last night. - Constitutional Vitals: Abnormal lab results RBC 2.98 M/mcL (4.19-5.50) L 06/19/17 11:34 Hgb 8.0 g/dL (12.9-16.9) L 06/19/17 11:34 Hct 27.9 % (37.5-50.1) L 06/19/17 11:34 MCH 26.8 pg (28.0-33.3) L 06/19/17 11:34 MCHC 28.7 g/dL (31.6-35.5) L 06/19/17 11:34 RDW 29.9 % (11.5-14.5) H 06/19/17 11:34 Band Neutrophils % 8.0 % (0-4) H 06/19/17 11:34 Neutrophils # 9.2 K/mcL (1.6-8.9) H 06/19/17 11:34 Lymphocytes # 0.2 K/mcL (0.6-4.6) L 06/19/17 11:34 Nucleated RBCs/100 WBC 2.0 /100 WBC (0) H 06/19/17 11:34 Polychromasia 3+ (Not Present) A 06/19/17 11:34 Hypochromasia Present (Not Present) A 06/19/17 11:34 Poikilocytosis 1+ (Not Present) A 06/19/17 11:34 Anisocytosis 3+ (Not Present) A 06/19/17 11:34 PT 13.3 Seconds (9.4-12.1) H 06/19/17 12:33 APTT 23.7 Seconds (26.0-36.0) L 06/19/17 12:33 ABG pH 7.46 pH Units (7.32-7.45) H 06/20/17 04:15 ABG pCO2 25 mmHg (35-45) L 06/20/17 04:15 ABG HCO3 17.8 mEQ/L (21-27) L 06/20/17 04:15 ABG Total CO2 18.6 mEq/L (20-26) L 06/20/17 04:15 ABG Base Excess -5.2 mEq/L (-2.0 to 3.0) L 06/20/17 04:15 Potassium 5.3 mEq/L (3.5-4.5) H 06/19/17 11:34 Carbon Dioxide 14 mEq/L (19-29) L 06/19/17 11:34 BUN 180 mg/dL (8-26) H 06/19/17 11:34 Creatinine 4.66 mg/dL (0.72-1.25) H 06/19/17 11:34 Est GFR ( Amer) 16 (> 60) L 06/19/17 11:34 Est GFR (Non-Af Amer) 13 (> 60) L 06/19/17 11:34 BUN/Creatinine Ratio 39 (6-26) H 06/19/17 11:34 Glucose 277 mg/dL (70-99) H 06/19/17 11:34 POC Glucose 276 (58-89) H 06/19/17 17:34 Calculated Osmolality 356 (280-300) H 06/19/17 11:34 Phosphorus 8.4 mg/dL (2.3-4.7) H 06/19/17 12:33 AST 221 Units/L (5-34) H 06/19/17 11:34 ALT 121 Units/L (0-55) H 06/19/17 11:34 Alkaline Phosphatase 423 Units/L (38-126) H 06/19/17 11:34 Albumin 2.9 g/dL (3.5-5.0) L 06/19/17 11:34 Albumin/Globulin Ratio 0.9 (1.1-2.2) L 06/19/17 11:34 Urine Color [place] (Yellow) A 06/19/17 11:34 Urine Clarity Turbid (Clear) A 06/19/17 11:34 Urine pH >=9.0 pH Units (5.0-8.0) H 06/19/17 11:34 Urine Protein >=300 mg/dL (Neg-Trace) H 06/19/17 11:34 Urine Blood Small (Negative) H 06/19/17 11:34 Ur Leukocyte Esterase Moderate (Negative) H 06/19/17 11:34 Urine Microscopic WBC 5-15 per hpf (0-3) H 06/19/17 11:34 Amorphous Sediment Many (Few) H 06/19/17 11:34 Urine Bacteria Many per hpf (None-Few) H 06/19/17 11:34 Urine Mucus Many (Few) H 06/19/17 11:34 Ur Culture Indicated? YES (NO) A 06/19/17 11:34 Exam: 61 year old male at end of life. He is unresponsive with periods of apnea lasting 20-30 seconds. Terminal fever noted last night. - Respiratory Additional comments: lung sound with rhonchi throughout, shallow respirations with periods of apnea - Cardiovascular Cardiovascular exam: Present: RRR (rate 90) - GI/Abdominal GI/Abdominal exam: Present: hypoactive bowel sounds. Absent: firm, guarding - Extremities Exam Extremities exam: Absent: pedal edema - Neurological Exam Neurological exam: Absent: alert - Psychiatric Psychiatric exam: Absent: agitated, anxious - Skin Skin exam: Present: mottled (bilateral knees) Palliative Quality Palliative Quality: Screen for Code Status: Yes, Screen for Goals of Care: Yes, Screen for Pain: Yes, If Pain Regimen Started, Initiate Bowel Regimen: Yes, Screen for Nausea/Vomitting: Yes Code Status: 06/19/17 17:22 Resuscitation Status: Active [RES] Routine Comment: Resuscitation Status: DNR-Comfort Care - Labs CBC & Chem 7: 06/19/17 11:34 06/19/17 11:34 - ABG Interpretation ABG results: ABG ABG pH 7.46 pH Units (7.32-7.45) H 06/20/17 04:15 ABG pCO2 25 mmHg (35-45) L 06/20/17 04:15 ABG pO2 102 mmHg (85-104) 06/20/17 04:15 ABG O2 Saturation 98 % (95-98) 06/20/17 04:15 PT/INR, D-dimer PT 13.3 Seconds (9.4-12.1) H 06/19/17 12:33 Consult Discharge Plan - Plan Referrals: NONE,PCP [Primary Care Provider] -
--- NOTE | 2017-06-23 11:14 | Internal Med Progress Note ---
<Phoenix Collins - Last Filed: 06/23/17 11:11> Date of Encounter: 06/23/17 Time of Encounter: 11:11 - Assessment and plan (1) Primary adenocarcinoma of esophagus with metastasis Current Visit: Yes Status: Chronic Assessment and plan: s/p terminal extubation; palliative on board and family has decided for comfort care only Continue supportive care with Ativan, Morphine, and Atropine as needed for symptom control - Subjective Interval history: Pt seen and examined. He remains unresponsive and asleep, but comfortable. is at bedside and states he continues to have agonal breathing but has appeared comfortable throughout the night without any secretions. - Constitutional Vitals: Temp Pulse Resp BP Pulse Ox 102.2 F H 104 6 89/51 88 06/22/17 21:54 06/22/17 21:54 06/22/17 21:54 06/22/17 21:54 06/22/17 21:54 General appearance: Present: A&O X 0, no acute distress. Absent: answers questions appropriately - Head Head exam: Present: atraumatic, normocephalic - Eye Eye exam: Present: conjuntiva pink, sclera anicteric - Neck Neck exam general surgery: Present: supple, trachea midline. Absent: lymphadenopathy - Respiratory Respiratory exam: Present: rales. Absent: accessory muscle use, rhonchi, wheezes - Cardiovascular Cardiovascular exam: Present: +S1, +S2, tachycardia. Absent: diastolic murmur, gallop, rubs, systolic murmur - GI/Abdominal GI/Abdominal exam: Present: normal bowel sounds, soft, no peritoneal signs. Absent: distended, tenderness - Extremities Exam Extremities exam: Present: pedal edema, warm, radial pulses palpable and symetrical. Absent: calf tenderness, cyanotic - Neurological Exam Neurological exam: Absent: oriented X3 - Skin Skin exam: Present: dry, intact Internal Medicine: Result - Labs CBC & Chem 7: 06/19/17 11:34 06/19/17 11:34 - ABG Interpretation ABG results: ABG ABG pH 7.46 pH Units (7.32-7.45) H 06/20/17 04:15 ABG pCO2 25 mmHg (35-45) L 06/20/17 04:15 ABG pO2 102 mmHg (85-104) 06/20/17 04:15 ABG O2 Saturation 98 % (95-98) 06/20/17 04:15 PT/INR, D-dimer PT 13.3 Seconds (9.4-12.1) H 06/19/17 12:33 Consult Discharge Plan - Plan Referrals: NONE,PCP [Primary Care Provider] - <Adriano Jimenes Karen - Last Filed: 06/23/17 18:32> Date of Encounter: 06/23/17 - Assessment and plan (1) Metastasis from esophageal cancer Current Visit: Yes Status: Chronic - Constitutional Vitals: Temp Pulse Resp BP Pulse Ox 102.2 F H 104 6 89/51 88 06/22/17 21:54 06/22/17 21:54 06/22/17 21:54 06/22/17 21:54 06/22/17 21:54 Internal Medicine: Result - Labs CBC & Chem 7: 06/19/17 11:34 06/19/17 11:34 - ABG Interpretation ABG results: ABG ABG pH 7.46 pH Units (7.32-7.45) H 06/20/17 04:15 ABG pCO2 25 mmHg (35-45) L 06/20/17 04:15 ABG pO2 102 mmHg (85-104) 06/20/17 04:15 ABG O2 Saturation 98 % (95-98) 06/20/17 04:15 PT/INR, D-dimer PT 13.3 Seconds (9.4-12.1) H 06/19/17 12:33 - Attending Attestation I examined this patient and my medical decision-making was reviewed with the Resident Physician on 06/23/17. I agree with the documented findings, disposition and treatment plan as described except to the extent set forth below. Mr. Wakefield is currently admitted for metastatic adenocarcinoma of esophagus and is actively dying. He remains low risk at this time. Mr. Wakefield appears comfortable. Exam Unresponsive. Comfortable Resp irreg and agonal Heart reg I/P 1. Actively dying Further diagnoses and plan as above.
--- NOTE | 2017-06-24 10:38 | Palliative Progress Note ---
Date of Encounter: 06/24/17 Time of Encounter: 10:36 - Assessment and plan (1) Airway clearance impairment Current Visit: Yes Status: Acute Assessment and plan: Mr. Wakefield is demonstrating terminal secretions. He does have atropine drops as needed. Discussed plan of care with family. (2) Dyspnea Current Visit: Yes Status: Acute Assessment and plan: Morphine PRN for increased work of breathing-he has used 2 doses in the past 24 hours. Position for comfort. Qualifiers: Dyspnea type: unspecified Qualified Code(s): R06.00 - Dyspnea, unspecified (3) Agitation Current Visit: Yes Status: Acute Assessment and plan: Lorazepam as needed. Spiritual support provided by personal athletic coach. (4) Goals of care, counseling/discussion Current Visit: Yes Status: Acute Assessment and plan: Mr. Wakefield is currently unresponsive and at end of life. His respirations are shallow and irregular with 30-40 second periods of apnea. Goal is comfort care. Given his current physical exam and rapid decline in health, he is not expected to survive long. Family educated on end of life care and plan of care. Discussed case with hospitalist. The palliative care team will continue to follow. (5) Metastasis from esophageal cancer Current Visit: Yes Status: Chronic - Time Spent With Patient Total time spent is greater than 50% in coordination of care (as documented) at patient's floor/unit and/or counseling patient: - Subjective Interval history: Mr. Wakefield is lying in bed, unresponsive with family at bedside. Periods of apnea lasting up to 30-40 seconds. Respiratory rate 4-6, heart rate 90, terminal fever noted yesterday. - Constitutional Vitals: Abnormal lab results RBC 2.98 M/mcL (4.19-5.50) L 06/19/17 11:34 Hgb 8.0 g/dL (12.9-16.9) L 06/19/17 11:34 Hct 27.9 % (37.5-50.1) L 06/19/17 11:34 MCH 26.8 pg (28.0-33.3) L 06/19/17 11:34 MCHC 28.7 g/dL (31.6-35.5) L 06/19/17 11:34 RDW 29.9 % (11.5-14.5) H 06/19/17 11:34 Band Neutrophils % 8.0 % (0-4) H 06/19/17 11:34 Neutrophils # 9.2 K/mcL (1.6-8.9) H 06/19/17 11:34 Lymphocytes # 0.2 K/mcL (0.6-4.6) L 06/19/17 11:34 Nucleated RBCs/100 WBC 2.0 /100 WBC (0) H 06/19/17 11:34 Polychromasia 3+ (Not Present) A 06/19/17 11:34 Hypochromasia Present (Not Present) A 06/19/17 11:34 Poikilocytosis 1+ (Not Present) A 06/19/17 11:34 Anisocytosis 3+ (Not Present) A 06/19/17 11:34 PT 13.3 Seconds (9.4-12.1) H 06/19/17 12:33 APTT 23.7 Seconds (26.0-36.0) L 06/19/17 12:33 ABG pH 7.46 pH Units (7.32-7.45) H 06/20/17 04:15 ABG pCO2 25 mmHg (35-45) L 06/20/17 04:15 ABG HCO3 17.8 mEQ/L (21-27) L 06/20/17 04:15 ABG Total CO2 18.6 mEq/L (20-26) L 06/20/17 04:15 ABG Base Excess -5.2 mEq/L (-2.0 to 3.0) L 06/20/17 04:15 Potassium 5.3 mEq/L (3.5-4.5) H 06/19/17 11:34 Carbon Dioxide 14 mEq/L (19-29) L 06/19/17 11:34 BUN 180 mg/dL (8-26) H 06/19/17 11:34 Creatinine 4.66 mg/dL (0.72-1.25) H 06/19/17 11:34 Est GFR ( Amer) 16 (> 60) L 06/19/17 11:34 Est GFR (Non-Af Amer) 13 (> 60) L 06/19/17 11:34 BUN/Creatinine Ratio 39 (6-26) H 06/19/17 11:34 Glucose 277 mg/dL (70-99) H 06/19/17 11:34 POC Glucose 276 (58-89) H 06/19/17 17:34 Calculated Osmolality 356 (280-300) H 06/19/17 11:34 Phosphorus 8.4 mg/dL (2.3-4.7) H 06/19/17 12:33 AST 221 Units/L (5-34) H 06/19/17 11:34 ALT 121 Units/L (0-55) H 06/19/17 11:34 Alkaline Phosphatase 423 Units/L (38-126) H 06/19/17 11:34 Albumin 2.9 g/dL (3.5-5.0) L 06/19/17 11:34 Albumin/Globulin Ratio 0.9 (1.1-2.2) L 06/19/17 11:34 Urine Color [place] (Yellow) A 06/19/17 11:34 Urine Clarity Turbid (Clear) A 06/19/17 11:34 Urine pH >=9.0 pH Units (5.0-8.0) H 06/19/17 11:34 Urine Protein >=300 mg/dL (Neg-Trace) H 06/19/17 11:34 Urine Blood Small (Negative) H 06/19/17 11:34 Ur Leukocyte Esterase Moderate (Negative) H 06/19/17 11:34 Urine Microscopic WBC 5-15 per hpf (0-3) H 06/19/17 11:34 Amorphous Sediment Many (Few) H 06/19/17 11:34 Urine Bacteria Many per hpf (None-Few) H 06/19/17 11:34 Urine Mucus Many (Few) H 06/19/17 11:34 Ur Culture Indicated? YES (NO) A 06/19/17 11:34 General appearance: Present: no acute distress Exam: 61 year old male at end of life. Family at bedside. - ENT ENT exam: Present: mucous membranes dry - Respiratory Respiratory exam: Present: rhonchi Additional comments: lung sounds with rhonchi, periods of apnea lasting 30-40 seconds - Cardiovascular Cardiovascular exam: Present: RRR - GI/Abdominal GI/Abdominal exam: Absent: guarding, tenderness - Extremities Exam Extremities exam: Absent: pedal edema - Neurological Exam Neurological exam: Absent: alert - Psychiatric Psychiatric exam: Absent: agitated, anxious - Skin Skin exam: Absent: mottled Palliative Quality Palliative Quality: Screen for Code Status: Yes, Screen for Goals of Care: Yes, Screen for Pain: Yes, If Pain Regimen Started, Initiate Bowel Regimen: Yes, Screen for Nausea/Vomitting: Yes Code Status: 06/19/17 17:22 Resuscitation Status: Active [RES] Routine Comment: Resuscitation Status: DNR-Comfort Care - Labs CBC & Chem 7: 06/19/17 11:34 06/19/17 11:34 - ABG Interpretation ABG results: ABG ABG pH 7.46 pH Units (7.32-7.45) H 06/20/17 04:15 ABG pCO2 25 mmHg (35-45) L 06/20/17 04:15 ABG pO2 102 mmHg (85-104) 06/20/17 04:15 ABG O2 Saturation 98 % (95-98) 06/20/17 04:15 PT/INR, D-dimer PT 13.3 Seconds (9.4-12.1) H 06/19/17 12:33 Consult Discharge Plan - Plan Referrals: NONE,PCP [Primary Care Provider] -
[2017-06-24] MEDS: *HR* Morphine 2 MG/ML SYRINGE IVP PRN (10:45)
[2017-06-24] MEDS: *HR* LORazepam 2 MG/ML VIAL IVP PRN (11:40)
--- NOTE | 2017-06-24 12:56 | Internal Med Progress Note ---
Date of Encounter: 06/24/17 Time of Encounter: 09:30 - Assessment and plan (1) Brain metastases Current Visit: Yes Status: Chronic (2) Metastasis from esophageal cancer Current Visit: Yes Status: Chronic Assessment and plan: Pt is actively dying. He appears comfortable at this time. Family is at bedside. Palliative care following as well and adjusting meds if needed. - Subjective Interval history: Mr Wakefield is currently admitted for respiratory failure in the setting of metastatic adenocarcinoma of the esophagus. He is actively dying. He is low risk due to comfort care status. Mr. Wakefield appears comfortable at this time. Sister is at bedside and questions answered. - Constitutional Vitals: Temp Pulse Resp BP Pulse Ox 97.6 F 87 8 95/61 94 06/24/17 10:57 06/24/17 10:57 06/24/17 10:57 06/24/17 10:57 06/24/17 10:57 General appearance: Absent: answers questions appropriately Exam: Unresponsive. Appears comfortable. - Head Head exam: Present: normocephalic - ENT ENT exam: Present: mucous membranes dry - Respiratory Respiratory exam: Present: decreased breath sounds, CTAB. Absent: rhonchi, wheezes Additional comments: Occasional upper airway sound noted. - Cardiovascular Cardiovascular exam: Present: RRR. Absent: tachycardia - GI/Abdominal GI/Abdominal exam: Present: soft - Neurological Exam Neurological exam: Absent: alert - Skin Skin exam: Present: warm. Absent: rash Internal Medicine: Result - Labs CBC & Chem 7: 06/19/17 11:34 06/19/17 11:34 - ABG Interpretation ABG results: ABG ABG pH 7.46 pH Units (7.32-7.45) H 06/20/17 04:15 ABG pCO2 25 mmHg (35-45) L 06/20/17 04:15 ABG pO2 102 mmHg (85-104) 06/20/17 04:15 ABG O2 Saturation 98 % (95-98) 06/20/17 04:15 PT/INR, D-dimer PT 13.3 Seconds (9.4-12.1) H 06/19/17 12:33 Consult Discharge Plan - Plan Referrals: NONE,PCP [Primary Care Provider] -
--- NOTE | 2017-06-25 11:07 | Palliative Progress Note ---
Date of Encounter: 06/25/17 Time of Encounter: 10:45 - Assessment and plan (1) Goals of care, counseling/discussion Current Visit: Yes Status: Acute Assessment and plan: desires to transfer patient closer to home. Discussed possible ECF placement with hospice care. Yvette desires [place] [facility] [place] or [place]. Aj Haider pull worker will call ECFs to check on possible placement. I discussed that the patient is expiring and may pass in transfer and Yvette verbalized understanding. Will follow results of placement. (2) Dyspnea Current Visit: No Status: Acute Assessment and plan: Patient has morphine for dyspnea. Has only used one dose in past 24 hrs. Supplemental oxygen. Qualifiers: Dyspnea type: unspecified Qualified Code(s): R06.00 - Dyspnea, unspecified (3) Airway clearance impairment Current Visit: Yes Status: Acute Assessment and plan: Patient with terminal secretions. Atropine gtts PRN. (4) Esophageal cancer Current Visit: Yes Status: Acute (5) Agitation Current Visit: No Status: Acute Assessment and plan: Ativan PRN. Patient had one dose in past 24 hrs. - Time Spent With Patient Total time spent is greater than 50% in coordination of care (as documented) at patient's floor/unit and/or counseling patient: less than 15 minutes - Subjective Interval history: Resting comfortably. Loose secretions to back of throat. at bedside. Discussed POC. - Constitutional Vitals: Abnormal lab results RBC 2.98 M/mcL (4.19-5.50) L 06/19/17 11:34 Hgb 8.0 g/dL (12.9-16.9) L 06/19/17 11:34 Hct 27.9 % (37.5-50.1) L 06/19/17 11:34 MCH 26.8 pg (28.0-33.3) L 06/19/17 11:34 MCHC 28.7 g/dL (31.6-35.5) L 06/19/17 11:34 RDW 29.9 % (11.5-14.5) H 06/19/17 11:34 Band Neutrophils % 8.0 % (0-4) H 06/19/17 11:34 Neutrophils # 9.2 K/mcL (1.6-8.9) H 06/19/17 11:34 Lymphocytes # 0.2 K/mcL (0.6-4.6) L 06/19/17 11:34 Nucleated RBCs/100 WBC 2.0 /100 WBC (0) H 06/19/17 11:34 Polychromasia 3+ (Not Present) A 06/19/17 11:34 Hypochromasia Present (Not Present) A 06/19/17 11:34 Poikilocytosis 1+ (Not Present) A 06/19/17 11:34 Anisocytosis 3+ (Not Present) A 06/19/17 11:34 PT 13.3 Seconds (9.4-12.1) H 06/19/17 12:33 APTT 23.7 Seconds (26.0-36.0) L 06/19/17 12:33 ABG pH 7.46 pH Units (7.32-7.45) H 06/20/17 04:15 ABG pCO2 25 mmHg (35-45) L 06/20/17 04:15 ABG HCO3 17.8 mEQ/L (21-27) L 06/20/17 04:15 ABG Total CO2 18.6 mEq/L (20-26) L 06/20/17 04:15 ABG Base Excess -5.2 mEq/L (-2.0 to 3.0) L 06/20/17 04:15 Potassium 5.3 mEq/L (3.5-4.5) H 06/19/17 11:34 Carbon Dioxide 14 mEq/L (19-29) L 06/19/17 11:34 BUN 180 mg/dL (8-26) H 06/19/17 11:34 Creatinine 4.66 mg/dL (0.72-1.25) H 06/19/17 11:34 Est GFR ( Amer) 16 (> 60) L 06/19/17 11:34 Est GFR (Non-Af Amer) 13 (> 60) L 06/19/17 11:34 BUN/Creatinine Ratio 39 (6-26) H 06/19/17 11:34 Glucose 277 mg/dL (70-99) H 06/19/17 11:34 POC Glucose 276 (58-89) H 06/19/17 17:34 Calculated Osmolality 356 (280-300) H 06/19/17 11:34 Phosphorus 8.4 mg/dL (2.3-4.7) H 06/19/17 12:33 AST 221 Units/L (5-34) H 06/19/17 11:34 ALT 121 Units/L (0-55) H 06/19/17 11:34 Alkaline Phosphatase 423 Units/L (38-126) H 06/19/17 11:34 Albumin 2.9 g/dL (3.5-5.0) L 06/19/17 11:34 Albumin/Globulin Ratio 0.9 (1.1-2.2) L 06/19/17 11:34 Urine Color [place] (Yellow) A 06/19/17 11:34 Urine Clarity Turbid (Clear) A 06/19/17 11:34 Urine pH >=9.0 pH Units (5.0-8.0) H 06/19/17 11:34 Urine Protein >=300 mg/dL (Neg-Trace) H 06/19/17 11:34 Urine Blood Small (Negative) H 06/19/17 11:34 Ur Leukocyte Esterase Moderate (Negative) H 06/19/17 11:34 Urine Microscopic WBC 5-15 per hpf (0-3) H 06/19/17 11:34 Amorphous Sediment Many (Few) H 06/19/17 11:34 Urine Bacteria Many per hpf (None-Few) H 06/19/17 11:34 Urine Mucus Many (Few) H 06/19/17 11:34 Ur Culture Indicated? YES (NO) A 06/19/17 11:34 - Head Head exam: Present: atraumatic, normal inspection, normocephalic - Eye Eye exam: Present: PERRL - ENT ENT exam: Present: mucous membranes moist - Neck Neck exam: Present: tenderness - Respiratory Respiratory exam: Present: decreased breath sounds - Expanded Respiratory Exam Location: decreased breath sounds: Left, Right, Lower - Cardiovascular Cardiovascular exam: Present: RRR, +S1, +S2 - GI/Abdominal GI/Abdominal exam: Present: diminished bowel sounds, soft - Rectal Rectal exam: Present: deferred - Back Exam Back exam: Present: full ROM - Neurological Exam Neurological exam: Present: altered (sleeping comfortable) - Psychiatric Psychiatric exam: Present: flat affect - Skin Skin exam: Present: pallor, warm Palliative Quality Palliative Quality: Screen for Code Status: Yes, Screen for Goals of Care: Yes, Screen for Pain: Yes, If Pain Regimen Started, Initiate Bowel Regimen: Yes, Screen for Nausea/Vomitting: Yes Code Status: 06/19/17 17:22 Resuscitation Status: Active [RES] Routine Comment: Resuscitation Status: DNR-Comfort Care - Labs CBC & Chem 7: 06/19/17 11:34 06/19/17 11:34 - ABG Interpretation ABG results: ABG ABG pH 7.46 pH Units (7.32-7.45) H 06/20/17 04:15 ABG pCO2 25 mmHg (35-45) L 06/20/17 04:15 ABG pO2 102 mmHg (85-104) 06/20/17 04:15 ABG O2 Saturation 98 % (95-98) 06/20/17 04:15 PT/INR, D-dimer PT 13.3 Seconds (9.4-12.1) H 06/19/17 12:33 Consult Discharge Plan - Plan Referrals: NONE,PCP [Primary Care Provider] - (hospice...)
--- NOTE | 2017-06-25 14:04 | Discharge Summary ---
Addendum entered and electronically signed by Milo Whelan DO 06/25/17 15:10: Conditional discharge on insurance approval. Original Note: <Milo Whelan - Last Filed: 06/25/17 14:39> Date of Encounter: 06/25/17 Time of Encounter: 14:02 - Discharge Diagnosis (1) Primary adenocarcinoma of esophagus with metastasis Priority: Secondary Status: Chronic (2) Acute respiratory failure Priority: Primary Status: Acute Qualifiers: Respiratory failure complication: hypoxia Qualified Code(s): J96.01 - Acute respiratory failure with hypoxia - Discharge Medications Prescriptions: LORazepam Oral Conc [Ativan Oral Conc] 1 mg PO Q6HR #10 mls Morphine Oral CONC [Roxanol] 0.5 ml PO Q4H PRN #30 ml PRN Reason: Pain Home Medications: LORazepam Oral Conc [Ativan Oral Conc] 1 mg PO Q6HR #10 mls 06/25/17 [Rx] Morphine Oral CONC [Roxanol] 0.5 ml PO Q4H PRN #30 ml 06/25/17 [Rx] Allergies/Adverse Reactions: Allergies Penicillins [PCN] Adverse Reaction (Verified 06/19/17 11:29) Hives Date of admission: 06/19/17 15:23 Primary care physician: PCP NONE Consults: 06/19/17 18:03 Consult to Nutrition [CONS] Routine Comment: Consulting Provider: NUTRITION Reason for Dietary Consult: MST Score 06/20/17 07:45 Consult to Palliative Care [CONS] Routine Comment: Consulting Provider: Palliative Care [place] Reason for Consult: end stage esophageal cancer w/ mets; DNR/DNI/CC - but intubated and on pressors - family waiting on family members to arrvie to extubate Call Completed: No - Patient Status Disposition: Hospice - Medical Facility Condition: Critical Functional capacity at discharge: bed bound - Discharge Instructions Instructions: Acute Kidney Injury (GEN), Urinary Tract Infection in Men (DC) Follow Up With: NONE,PCP [Primary Care Provider] - (hospice...) Hospital course: Mr. Wakefield is a 61 year old male came tot [facility] on 06/19/17. 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 Patient was intubated in the ED and started on norepinephrine due to hypotension. Due to confirmation of DNR with family patient was extubated. Patient was admitted and remained on comfort care with no interventions. Comfort care included lorazepam and morphine. On 06/25/17 patient's family decided to transfer patient closer to in ECF with hospice care. Yvette desires [place] [facility] [place] or [place]. - Time Spent with Patient Total time spent providing and/or coordinating discharge services: - Constitutional Vitals: Temp Pulse Resp BP Pulse Ox 97.9 F 89 7 86/53 93 06/25/17 08:20 06/25/17 08:20 06/25/17 08:20 06/25/17 08:20 06/25/17 08:20 General appearance: Present: no acute distress. Absent: answers questions appropriately - Head Head exam: Present: normal inspection - Respiratory Respiratory exam: Present: accessory muscle use - Cardiovascular Cardiovascular exam: Present: RRR, +S1, +S2. Absent: diastolic murmur, gallop, rubs, systolic murmur - GI/Abdominal GI/Abdominal exam: Present: hypoactive bowel sounds - Psychiatric Additional comments: non-responsive <Adriano Jimenes - Last Filed: 06/25/17 17:32> Date of Encounter: 06/25/17 - Discharge Diagnosis (1) Acute respiratory failure Priority: Primary Status: Acute Qualifiers: Respiratory failure complication: hypoxia Qualified Code(s): J96.01 - Acute respiratory failure with hypoxia (2) Brain metastases Priority: Primary Status: Chronic (3) Metastasis from esophageal cancer Priority: Primary Status: Chronic (4) Acidosis Priority: Secondary Status: Resolved (5) Acute renal failure Priority: Secondary Status: Acute Qualifiers: Acute renal failure type: unspecified Qualified Code(s): N17.9 - Acute kidney failure, unspecified (6) Diabetes Priority: Secondary Status: Chronic Qualifiers: Diabetes mellitus type: type 2 Diabetes mellitus complication status: without complication Diabetes mellitus intermediate school teacher insulin use: without intermediate school teacher use Qualified Code(s): E11.9 - Type 2 diabetes mellitus without complications (7) GERD (gastroesophageal reflux disease) Priority: Secondary Status: Chronic Qualifiers: Esophagitis presence: esophagitis presence not specified Qualified Code(s) : K21.9 - Gastro-esophageal reflux disease without esophagitis Date of admission: 06/19/17 15:23 Primary care physician: PCP NONE Consults: 06/19/17 18:03 Consult to Nutrition [CONS] Routine Comment: Consulting Provider: NUTRITION Reason for Dietary Consult: MST Score 06/20/17 07:45 Consult to Palliative Care [CONS] Routine Comment: Consulting Provider: Palliative Care [place] Reason for Consult: end stage esophageal cancer w/ mets; DNR/DNI/CC - but intubated and on pressors - family waiting on family members to arrvie to extubate Call Completed: No Hospital course: Mr. Wakefield is a 61 year old male - Time Spent with Patient Total time spent providing and/or coordinating discharge services: 39min - Constitutional Vitals: Temp Pulse Resp BP Pulse Ox 97.9 F 89 7 86/53 93 06/25/17 08:20 06/25/17 08:20 06/25/17 08:20 06/25/17 08:20 06/25/17 08:20 - Attending Attestation I examined this patient and my medical decision-making was reviewed with the Resident Physician on 06/25/17. I agree with the documented findings, disposition and treatment plan as described except to the extent set forth below. Mr. Wakefield was admitted for unresponsiveness. He had acute renal failure and acute respiratory failure and was intubated. Ultimately he was extubated and placed in comfort care. He is actively dying. Family would like to move him closer to home. Exam Unresponsive. Bradypnea. Comfortable. I/P 1. Metastatic esoph. cancer Further diagnoses and plan as above.
--- NOTE | 2017-06-25 16:40 | Physician Discharge Referral ---
Home Health/Hosp Referral Info Transfer to: Hospice Attending Provider: Dr. Adriano Jimenes Provider in Charge Post Discharge: Phosphoric Acid Supervisor - Diagnosis (1) Primary adenocarcinoma of esophagus with metastasis Status: Chronic (2) Acute respiratory failure Status: Acute - Respiratory Orders Smoking Cessation: Smoking cessation has been advised. For more information, call the [place] Tobacco Quit Line at 8-205-DKES-NOW. - Transfer Medications Prescriptions: LORazepam Oral Conc [Ativan Oral Conc] 1 mg PO Q6HR #10 mls Morphine Oral CONC [Roxanol] 0.5 ml PO Q4H PRN #30 ml PRN Reason: Pain Home Medications: LORazepam Oral Conc [Ativan Oral Conc] 1 mg PO Q6HR #10 mls 06/25/17 [Rx] Morphine Oral CONC [Roxanol] 0.5 ml PO Q4H PRN #30 ml 06/25/17 [Rx] Allergies/Adverse Reactions: Allergies Penicillins [PCN] Adverse Reaction (Verified 06/19/17 11:29) Hives Certification: Further, I certify that my clinical findings support that this patient is homebound (i.e. absences from home require considerable and taxing effort and are for medical reasons or hinduism services or infrequently or short duration when for other reasons) because: Homebound Reason: Leaving home requires considerable and taxing effort due to condition (comfort care only) Attestation: My signature below is to certify that this patient is under my care and that I, or nurse practitioner, or a physician's conventions assistant working with me, has a face-to -face encounter with this patient.
[2017-06-25] MEDS: *HR* Morphine 2 MG/ML SYRINGE IVP PRN (20:03)
[2017-06-26] MEDS: *HR* LORazepam 2 MG/ML VIAL IVP PRN (04:07)
[2017-06-26] MEDS: Atropine Sulfate 1% 40 DROP/2 ML BOTTLE SL PRN (04:10)
[2017-06-26] MEDS: *HR* Morphine 2 MG/ML SYRINGE IVP PRN ×2 (04:48→06:48)
[2017-06-26 07:02] VITALS: BP 71/45
--- NOTE | 2017-06-26 16:22 | Death Note ---
<Milo Whelan - Last Filed: 06/26/17 16:20> Discharge Sum: Summary - Date and Time Date of admission: 06/19/17 15:23 Date of : 06/26/17 Time of : 08:05 - Summary Details: Mr. Wakefield was a 61 year old male came to the hospital on 06/19/17. 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 Patient was intubated in the ED and started on norepinephrine due to hypotension. Due to confirmation of DNR with family patient was extubated. Patient was admitted and remained on comfort care with no interventions. Comfort care included lorazepam and morphine. On 06/25/17 patient's family decided to transfer patient closer to in ECF with hospice care. Yvette desired transfer to [facility]. Prior to transfer, patient at 8:05 AM on 06/26/2017 - Additional Data Confirmation of as documented by pronouncing clinician: no pulse, no respirations, no heart sounds, pupils fixed and dilated Family: contacted Attending/PCP notified?: Yes Attending physician: Dr. Leary Was code activated?: No Autopsy requested?: No land examiner notified?: No Organ bank notified?: No Advance directives: Yes Hospice patient?: Yes Discharge Sum: Diag - PCOD Probable Cause of : Acute respiratory failure Discharge Sum: Prov - Provider Primary care physician: PCP NONE Admitting clinician: Milo Whelan Attending physician on admission: Nicolás Leary Consults: 06/19/17 18:03 Consult to Nutrition [CONS] Routine Comment: Consulting Provider: NUTRITION Reason for Dietary Consult: MST Score 06/20/17 07:45 Consult to Palliative Care [CONS] Routine Comment: Consulting Provider: Palliative Care [facility] Reason for Consult: end stage esophageal cancer w/ mets; DNR/DNI/CC - but intubated and on pressors - family waiting on family members to arrvie to extubate Call Completed: No Pronouncing clinician: Milo Whelan - Attending Attestation Dr. Nicolás Leary <Nicolás Leary - Last Filed: 06/26/17 16:44> Discharge Sum: Summary - Date and Time Date of admission: 06/19/17 15:23 - Additional Data Attending physician: Adriano Jimenes DO Discharge Sum: Prov - Provider Primary care physician: PCP NONE Consults: 06/19/17 18:03 Consult to Nutrition [CONS] Routine Comment: Consulting Provider: NUTRITION Reason for Dietary Consult: MST Score 06/20/17 07:45 Consult to Palliative Care [CONS] Routine Comment: Consulting Provider: Palliative Care Luz Reason for Consult: end stage esophageal cancer w/ mets; DNR/DNI/CC - but intubated and on pressors - family waiting on family members to arrvie to extubate Call Completed: No - Attending Attestation I examined this patient and my medical decision-making was reviewed with the Resident Physician on 06/26/17. I agree with the documented findings, disposition and treatment plan as described except to the extent set forth below. patient at 8:05 AM on 06/26/2017 was imminent and expected
== END 2017-06-26 09:13 | disposition hospice, inpatient (51) | DRG 374 ==
LOC: EMEROO 11:19 → SUATTDRO 15:23 → ICNU 15:23 → 2ANU 06-20 17:55
PROVIDERS: ADMIT Internal Medicine Pulmonary Disease; ATTEND Internal Medicine